=== PATIENT | female | born 1960 | race Caucasian/White ===

== ENCOUNTER 2022-09-21 17:32 | Emergency (ER) | payer OTHER, SELFPAY ==
[2022-09-21] VITALS (10 sets, daily range): BP systolic 118–154; BP diastolic 60–84; PULSE 57–65; RESP 15–21; TEMP 36.2; O2SAT 96–99; BMI 32.1
[2022-09-21 18:34] LABS: Add Manual Diff / Slide Review NO; Basophils Absolute Auto 0 /uL (0-100); Basophils Percent Auto 0.7 % (0-2); Eosinophils Absolute Auto 0 /uL (0-450); Hematocrit 35.3 % (36-46); Hemoglobin 12.2 g/dL (12.0-16.0); Lymphocytes Absolute Auto 1900 /uL (1100-4500); Mean Corpuscular HGB Conc 34.4 % (30-36); Mean Corpuscular Hemoglobin 29.7 PG (26-34); Mean Corpuscular Volume 86.4 fL (80-100); Monocytes Absolute Auto 700 /uL (0-900); Monocytes Percent Auto 9.6 % (3-14); Neutrophils Absolute Auto 4700 /uL (1500-7000); Neutrophils Percent Auto 63.7 % (50-75); Platelet Count 272 X10^3/uL (150-400); Red Blood Cell Count 4.09 X10^6/uL (4.0-5.2); Red Cell Distribution Width 13.2 % (11.6-14.8); White Blood Cell Count 7.4 X10^3/uL (4.5-11.0)
[2022-09-21 18:47] LABS: Amorphous Sediment Urine 2+; Bacteria Urine None Seen; Calcium Oxalate Crystals Urine Many; RBC Urine None Seen (0-5/HPF); Squamous Epithelial Cell Urine 5-10 /HPF (0-5/HPF); WBC Urine None Seen (0-5/HPF)
[2022-09-21 18:47] LABS: Alanine Aminotransferase 18 IU/L (<35); Albumin 4.1 g/dL (3.5-5.0); Albumin Globulin Ratio 1.2 (1.0-2.8); Alkaline Phosphatase 71 U/L (38-126); Aspartate Aminotransferase 25 IU/L (14-36); BUN Creatinine Ratio 19.5 (6-22); Bilirubin Total 0.5 mg/dL (0.2-1.3); Blood Urea Nitrogen 16 mg/dL (7-17); Calcium 9.4 mg/dL (8.4-10.2); Carbon Dioxide 27 mmol/L (22-32); Chloride 107 mmol/L (98-107); Estimated Glomerular Filt Rate > 60 mL/min (>60); Globulin 3.5 g/dL (1.7-4.1); Glucose 100 mg/dL (80-110); HEMOLYSIS < 15 (0-50); Lipase 115 U/L (23-300); Potassium 3.6 mmol/L (3.4-5.1); Sodium 141 mmol/L (137-145); Total Protein 7.6 g/dL (6.3-8.2)
[2022-09-21 18:48] LABS: Culture Indicated Urine Cult Not Indicated
--- NOTE | 2022-09-21 18:57 | PC.NURSE ---
Pt reporting she did get lightheaded and dizzy for a few minutes after the sneeze that caused her pain.
--- NOTE | 2022-09-21 19:13 | DI.CT.S_ITS ---
PROCEDURE: CT ABDOMEN PELVIS W CON INDICATIONS: hx of abdominal surgeries with hernia and now pain TECHNIQUE: After the administration of oral and IV contrast, axial sections were acquired from the lung bases to the pubic symphysis. Coronal and sagittal reformats were performed. For radiation dose reduction, the following was used: automated exposure control, adjustment of mA and/or kV according to patient size. COMPARISON: None. FINDINGS: Image quality: Excellent. Lung bases: Unremarkable. Heart: No significant findings. ABDOMEN: Liver: Normal size. Mild hepatic steatosis. Gallbladder: Surgically removed. Biliary ducts: Unremarkable. Pancreas: Unremarkable. Spleen: Unremarkable. Adrenal Glands: Unremarkable. Kidneys and Ureters: Normal size. Symmetrical enhancement. 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 Small low-density cortical nodules are most likely cysts. Stomach and Bowel: Stomach, small bowel loops, and colon are normal in caliber. Diverticulosis without acute diverticulitis. Peritoneum: No abnormal intraperitoneal fluid. No free air. Ventral Wall: There is a periumbilical ventral hernia containing short segment of small intestine. No findings to suggest small bowel obstruction at the hernia site. Abdominal Nodes: No retroperitoneal or mesenteric adenopathy by size criteria. Vessels: Aorta and inferior vena cava are normal in size. PELVIS: Pelvic Organs: Unremarkable. Bladder: Unremarkable. Pelvic Nodes: No enlarged lymph nodes. Miscellaneous: No inguinal hernias are seen. Bones: Unremarkable. IMPRESSION: 1. Moderate sized periumbilical ventral hernia containing a short segment of small intestine. No small bowel obstruction. 2. Diverticulosis without diverticulitis. 3. Hepatic steatosis. Dictated by: Rohan Ladd M.D. on 09/21/2022 at 20:54 Approved by: Rohan Ladd M.D. on 09/21/2022 at 20:59
--- NOTE | 2022-09-21 19:13 | ED.GENADULT ---
HPI - General Adult General Chief complaint: Abdominal Pain Stated complaint: Abd pain, burning feeling, hx of 18lb tumor Time Seen by Provider: 09/21/22 18:17 Source: patient Mode of arrival: Ambulatory Limitations: no limitations History of Present Illness HPI narrative: Patient is a 62-year-old female. Has had prior abdominal surgeries. She has thought in the past that she had a potential small umbilical hernia. A couple days ago she states she had a sneeze/cough. She would immediate pain afterwards. Since that time she is had abdominal discomfort and burning. States that when she stands up she can feel a bulge in the middle of her abdomen that then she can push back in and it does resolve when she lays down as well. No change in bowel habits. No vomiting. No urinary symptoms. No fevers. Has not tried anything for the symptoms prior to arrival. Related Data Allergies Allergy/AdvReac Type Severity Reaction Status Date / Time morphine Allergy Verified 09/21/22 17:44 Penicillins Allergy Verified 09/21/22 17:44 Review of Systems Constitutional Constitutional: Reports system reviewed and no additional complaints, except as documented Gastrointestinal Gastrointestinal: Reports system reviewed and no additional complaints, except as documented Genitourinary Genitourinary: Reports system reviewed and no additional complaints, except as documented Integumentary/Breasts Skin/Breast: Reports system reviewed and no additional complaints, except as documented Patient History Social History Smoking Status: Never smoker Smoking Status: Never smoker alcohol intake frequency: holidays/special occasions only Substance Use Type: marijuana Exam Initial Vital Signs Initial Vital Signs: Vital Signs Temperature 97.2 F L 09/21/22 17:44 Pulse Rate 65 09/21/22 17:44 Respiratory Rate 16 09/21/22 17:44 Blood Pressure 154/67 H 09/21/22 17:44 Pulse Oximetry 99 09/21/22 17:44 Oxygen Delivery Method Room Air 09/21/22 17:44 Const General: cooperative, comfortable and No ill appearing [facility] Head: normal to inspection and normocephalic GI Inspection: non-distended Palpation: soft, No firm, No hernia, No mass and No tender Skin Other: Well-healed surgical scars and abdomen consistent with her stated surgical history Neuro General: patient alert, patient awake and moves all extremities Extrem General: normal to inspection Course Orders Ordered: Discontinued Medications Hydrocodone Bitart/Acetaminophen (Hydrocodone/Acet 5/325 Prepack) 1 bottle MISC SEEINSTR ONE Stop: 09/21/22 21:37 Last Admin: 09/21/22 22:02 Dose: 1 bottle Documented By: ISAIAS Hydrocodone Bitart/Acetaminophen (Hydrocodone/Acet 5/325 Tablet) 1 tab PO NOW ONE Stop: 09/21/22 21:37 Last Admin: 09/21/22 22:01 Dose: 1 tab Documented By: ISAIAS Ondansetron HCl (Ondansetron 4 Mg Odt) 4 mg PO NOW PRN PRN Reason: Nausea And Vomiting Ondansetron HCl (Ondansetron 4 Mg/2 Ml Inj) 4 mg IV NOW PRN PRN Reason: Nausea And Vomiting Vital Signs Vital signs: Vital Signs - 8 hr 09/21/22 22:03 09/21/22 21:30 Pulse Rate 62 Blood Pressure 137/63 Pulse Oximetry 98 Oxygen Delivery Method Room Air Medical Decision Making Lab Data Lab results reviewed: Yes I reviewed the patient's lab results. 09/21/22 18:27 09/21/22 18:27 Labs: Lab Results 09/21/22 09/21/22 09/21/22 Range/Units 15:21 18:27 18:27 WBC 7.4 (4.5-11.0) X10^3/uL RBC 4.09 (4.0-5.2) X10^6/uL Hgb 12.2 (12.0-16.0) g/dL Hct 35.3 L (36-46) % MCV 86.4 (80-100) fL MCH 29.7 (26-34) PG MCHC 34.4 (30-36) % RDW 13.2 (11.6-14.8) % Plt Count 272 (150-400) X10^3/uL Neut % (Auto) 63.7 (50-75) % Lymph % (Auto) 26.0 (25-40) % [place] % (Auto) 9.6 (3-14) % Eos % (Auto) 0.0 L (2-4) % Baso % (Auto) 0.7 (0-2) % Neut # (Auto) 4700 (2838-7505) /uL Lymph # (Auto) 1900 (7977-7913) /uL [place] # (Auto) 700 (0-900) /uL Eos # (Auto) 0 (0-450) /uL Baso # (Auto) 0 (0-100) /uL Sodium 141 (137-145) mmol/L Potassium 3.6 (3.4-5.1) mmol/L Chloride 107 (98-107) mmol/L Carbon Dioxide 27 (22-32) mmol/L BUN 16 (7-17) mg/dL Creatinine 0.82 (0.52-1.04) mg/dL Estimated GFR > 60 (>60) mL/min BUN/Creatinine Ratio 19.5 (6-22) Glucose 100 (80-110) mg/dL Calcium 9.4 (8.4-10.2) mg/dL Total Bilirubin 0.5 (0.2-1.3) mg/dL AST 25 (14-36) IU/L ALT 18 (<35) IU/L Alkaline Phosphatase 71 (38-126) U/L Total Protein 7.6 (6.3-8.2) g/dL Albumin 4.1 (3.5-5.0) g/dL Globulin 3.5 (1.7-4.1) g/dL Albumin/Globulin Ratio 1.2 (1.0-2.8) Lipase 115 (23-300) U/L Urine RBC None seen (0-5/HPF) Urine WBC None seen (0-5/HPF) Ur Squamous Epith Cells 5-10 /hpf H (0-5/HPF) Calcium Oxalate Crystal Many H Amorphous Sediment 2+ Urine Bacteria None seen (None) Ur Culture Indicated? Cult not indicated Point of Care Testing Test Results Negative Urine Dip Bedside Urine Glucose Negative Bedside Urine Bilirubin - Negative Bedside Urine Ketone - Negative Urine Specific [place] 1.030 Bedside Urine Occult Blood + Bedside Urine pH 5.5 Bedside Urine Protein - Negative Bedside Urine Urobilinogen - Negative Bedside Urine Nitrite - Negative Bedside Urine Leukocytes - Negative Esterase Point of care testing: Point of Care Testing Test Results Negative Urine Dip Bedside Urine Glucose Negative Bedside Urine Bilirubin - Negative Bedside Urine Ketone - Negative Urine Specific [place] 1.030 Bedside Urine Occult Blood + Bedside Urine pH 5.5 Bedside Urine Protein - Negative Bedside Urine Urobilinogen - Negative Bedside Urine Nitrite - Negative Bedside Urine Leukocytes - Negative Esterase Imaging Data CT scan - abdomen/pelvis: Radiologist's Impression: PROCEDURE:? CT ABDOMEN PELVIS W CON ? INDICATIONS:? hx of abdominal surgeries with hernia and now pain ? TECHNIQUE:? After the administration of oral and IV contrast, axial sections were acquired from the lung bases to the pubic symphysis.? Coronal and sagittal reformats were performed.? For radiation dose reduction, the following was used:? automated exposure control, adjustment of mA and/or kV according to patient size. ? COMPARISON:? None. ? FINDINGS:? Image quality:? Excellent.? ? Lung bases:? Unremarkable.? ? Heart:? No significant findings. ? ? ABDOMEN: Liver:? Normal size.? Mild hepatic steatosis.? ? Gallbladder:? Surgically removed.? ? Biliary ducts:? Unremarkable.? ? Pancreas:? Unremarkable.? ? Spleen:? Unremarkable.? ? Adrenal Glands:? Unremarkable.? ? Kidneys and Ureters:? Normal size.? Symmetrical enhancement.? Suspect a 9 mm angiomyolipoma in the inferior pole of the right kidney.? Small low-density cortical nodules are most likely cysts. ? ? Stomach and Bowel:? Stomach, small bowel loops, and colon are normal in caliber.? Diverticulosis without acute diverticulitis. Peritoneum:? No abnormal intraperitoneal fluid.? No free air.? ? Ventral Wall: ? There is a periumbilical ventral hernia containing short segment of small intestine.? No findings to suggest small bowel obstruction at the hernia site.? Abdominal Nodes:? No retroperitoneal or mesenteric adenopathy by size criteria.? Vessels:? Aorta and inferior vena cava are normal in size.? ? PELVIS: Pelvic Organs:? Unremarkable.? ? Bladder:? Unremarkable.? ? Pelvic Nodes: No enlarged lymph nodes.? Miscellaneous: No inguinal hernias are seen. ? ? ? Bones:? Unremarkable.? IMPRESSION:? ? 1. Moderate sized periumbilical ventral hernia containing a short segment of small intestine.? No small bowel obstruction. 2. Diverticulosis without diverticulitis. 3.? Hepatic steatosis.? ECG Data Attestation: I personally reviewed and interpreted this ECG as follows: Interpretation: Sinus bradycardia Ventricular rate of 52 Normal axis Normal QRS Normal QTC No ST T wave changes MDM Narrative Medical decision making narrative: Patient has a relatively benign abdominal exam today. I do not specifically feel an umbilical nor ventral hernia however she is at risk for this. A CT scan does confirm that she has hernias but there is no indication of strangulation/incarceration nor bowel obstruction. I suspect that when she had that sneeze/cough a couple days ago she potentially tore her abdominal muscles and potentially he even made a small hernia worse. I did discuss this with her. Told her that she needed to follow-up with general surgery to discuss surgical repair. No indication for admission to the hospital nor emergent surgical consultation. She was given return precautions. She expressed understanding and agreement. Discharge Plan Departure Patient Disposition: Home Clinical Impression: Ventral hernia, Umbilical hernia Instructions: DI for Ventral Hernia Activity Restrictions/Additional Instructions: I recommend that tomorrow you contact the general surgery department at the number provided below to discuss a follow-up. Take the pain medication as needed. Return to the emergency department for any new or worsening symptoms. Referrals: Jameson Carson MD [Physician] - Stand Alone Forms: Patient Portal/API
[2022-09-21] MEDS: HYDROCODONE/ACET 5/325 TABLET 1 TAB PO (22:01)
[2022-09-21] MEDS: HYDROCODONE/ACET 5/325 PREPACK 1 BOTTLE MISC (22:02)
== END 2022-09-21 22:08 | disposition home or self-care (01) ==
PROVIDERS: Emergency Provider Emergency Medicine
DX: K43.9 Ventral hernia without obstruction or gangrene (principal); K42.9 Umbilical hernia without obstruction or gangrene; R10.9 Unspecified abdominal pain
CPT/HCPCS: 36415; 74177; 80053; 81003; 81015; 81025; 83690; 85025; 93005; 99284; Q9967

== ENCOUNTER 2022-10-14 13:28 | Observation (INO) | payer OTHER, MEDICAID, SELFPAY ==
[2022-10-06 07:58] VITALS: BMI 33.1
[2022-10-13] VITALS (10 sets, daily range): BP systolic 115–167; BP diastolic 51–85; PULSE 56–94; RESP 10–18; TEMP 35.9–36.7; O2SAT 92–98; BMI 33.6
[2022-10-13] MEDS: LACTATED RINGERS 1,000 ML 42 ML IV ×3 (14:11→18:33)
[2022-10-13] MEDS: ONDANSETRON 4 MG/2 ML INJ IV ×3 (14:26→21:15)
[2022-10-13 14:40] LABS: COVID19 -Nasal RAPID Negative (Negative)
--- NOTE | 2022-10-13 15:45 | PM.PREOP ---
Pre-operative Note Interval Note History & Physical reviewed/Exam performed by Physician: Yes Changes to H&P: No
[2022-10-13] MEDS: CEFAZOLIN 2 GM/100 ML PREMIX 100 ML IV (16:25)
--- NOTE | 2022-10-13 17:04 | SUR.OPER ---
Supine on padded OR bed with pink anti-slide foam pad under torso, head on pillow, arms padded and tucked at sides, legs uncrossed, safety belt at thigh, tape over blanket over lower legs . Pt positioned per direction and supervision of Dr Reza.
[2022-10-13] MEDS: BUPIVACAINE 0.25% W/ EPI 30 ML VIAL INJ (17:15)
[2022-10-13] MEDS: CEFAZOLIN VIAL 2 GM in SODIUM CHLORIDE 0.9% 100 ML IV (20:09)
[2022-10-13] MEDS: HYDROMORPHONE 2 MG INJ IV ×3 (21:15→21:42)
[2022-10-13] MEDS: fentaNYL 100 MCG/2 ML INJ ×2 (21:15→21:28)
--- NOTE | 2022-10-13 21:17 | PM.OP.1 ---
Operative Date/Time/Diagnoses Date of procedure: 10/13/22 Time of procedure: 21:17 Pre-op diagnosis: Incisional hernia Post-op diagnosis: same Procedure & Clinicians Procedure: Incisional hernia repair -lap converted to open Same procedure as scheduled: Yes Surgeon: Chantal Reza Anesthesia Type: General Operative Notes Findings: 8 cm ventral hernia with weak and diastasis of recti around it Specimen(s): none sent Prosthetic devices, grafts, tissues, transplants, or devices: 6 x 6 in Bard large pore soft mesh Applied: catheter (Urinary) Estimated Blood Loss (mL): 100 Procedure in detail: Patient was taken to the operating room and placed supine on the operating room table. Bilateral SCDs were in place and preoperative antibiotics were administered. A time-out was performed. General endotracheal anesthesia was induced. The abdomen was prepped and draped in the usual sterile fashion and both arms were tucked by the side. A little bit of hyperextension of the abdomen was provided with positioning. To begin an incision was made in the left upper quadrant with an 11 blade scalpel of 10 mm size this incision was carried down through the subcutaneous tissue and through the anterior abdominal rectus fascia. The rectal muscle was spread and an attempt to enter the retrorectal space was made. During this process a a rent in the posterior rectus sheath and peritoneum was made. This create a difficulty in dissecting the retrorectal space and developing it because eventually the air leak into the intra-abdominal space was closing off the retrorectal space. After several attempts to close the peritoneum and reinflate the correct cavity I reattempted to enter the retrorectal space from an intraperitoneal location. The Brennan trocar was left in the same position but the previous rent was opened and the trocar was allowed into the abdomen. After placing the 5 mm 30 degree scope into the abdomen I inspected it for entry injury or other abnormalities. I could see the hernia defect of 8 cm in size below the umbilicus, there were minimal adhesions and no bowel incarcerated in the hernia sac. I made an incision in the posterior rectus sheath and peritoneum above the umbilicus and using electrocautery with the laparoscopic Metzenbaum scissors, I was able to open this space and dissected it somewhat. I did insert additional trocars of 5 mm in size under direct visualization in the usual fashion. However, due to the location of the ports and technical difficulties I was not easily able to carry this space far enough towards the pubis to create a large enough pocket around the hernia space to accommodate a mesh into the retrorectus space that would have sufficient overlap for adequate repair. Due to the time that had elapsed and in an effort to decrease her anesthetic time I elected at that point to convert to an open procedure. I made an incision below the umbilicus through her previous incision scar. Because I had done a laparoscopic examination and dissection, I knew that the bowel was not incarcerated within the defect and I was able to enter the retrorectal space in an open fashion relatively easily. There was some bleeding from the rectus muscles. After opening the defect and excising the peritoneal sac I then reapproximated the posterior sheath and tacked the mesh in 4 corners over the posterior closure. I used a interrupted 0 Vicryl sutures for the tacking sutures and 0 Prolene suture in a running fashion to close the posterior sheath. I ran 2 separate sutures from the top and bottom of the posterior rectus defect and tied them in the middle. Before completing the closure I placed the tacks through the mesh and posterior sheath with direct visualization. Next I used a looped 0 PDS to run the anterior rectus sheath closed. The mesh was underneath the rectal muscles and the rectal muscles were closed behind the rectus sheath. After this repair there was a large amount of subcutaneous tissue that created a large enough pocket that I decided to place a 10 PACO flat drain into the subcutaneous space. I then closed that subcutaneous space with a running 3-0 Vicryl. I used a 3-0 Vicryl to tack the umbilicus down as well. I closed the skin with skin dominik. In addition I closed the fascia of the initial 10 mm left upper quadrant incision with an 0 Vicryl suture in a [id number]. The additional 5 mm trocar sites and the 10 mm left upper quadrant site were closed with dominik as well. The drain was secured with a drain stitch of 2-0 silk. The wounds were dressed with 4x4s and tape. An abdominal binder was placed. Patient went in good condition to the postoperative care unit. Complications: other (Lap converted to open) Post-operative Disposition: PACU Plan for aftercare: She will be admitted overnight for pain control.
[2022-10-13] MEDS: ACETAMINOPHEN IV 1,000 MG/100 ML VIAL 400 MG IV (21:24)
--- NOTE | 2022-10-13 21:49 | SUR.PHASEI ---
Patient to recovery room at 2115 in severe abdominal pain; crying, inconsolable; vss; deep breathing encouraged and comfort measures given by OR nurse and PACU nurse. Medicated for pain and nausea.
--- NOTE | 2022-10-13 21:50 | SUR.PHASEI ---
Patient resting more comfortably at this time and speaking in full sentences, not crying as much and appears to be more comfortable. VSS.
[2022-10-13] MEDS: OXYCODONE IR 5 MG TABLET PO (22:48)
[2022-10-13] MEDS: SODIUM CHLORIDE 0.9% 1,000 ML 75 ML IV (22:49)
[2022-10-14 00:15] VITALS: BP 117/52; PULSE 74; RESP 16; TEMP 36.7; O2SAT 92
[2022-10-14] MEDS: HYDROMORPHONE 1 MG INJ IV ×4 (01:34→08:56)
[2022-10-14] MEDS: ONDANSETRON 4 MG/2 ML INJ IV ×4 (01:34→20:20)
[2022-10-14 01:35] VITALS: BP 134/65; PULSE 77; RESP 17; TEMP 36.1; O2SAT 94
[2022-10-14] MEDS: OXYCODONE IR 10 MG TABLET PO ×2 (02:17→05:51)
[2022-10-14] MEDS: ACETAMINOPHEN 325 MG TABLET 975 MG PO ×3 (04:28→18:36)
[2022-10-14 08:00] VITALS: BP 136/61; PULSE 76; RESP 17; TEMP 36.2; O2SAT 97
[2022-10-14] MEDS: ENOXAPARIN 40 MG/0.4 ML SYRINGE SUBCUT (08:56)
[2022-10-14] MEDS: DOCUSATE 100 MG CAPSULE PO ×2 (08:56→20:20)
--- NOTE | 2022-10-14 09:33 | P.PN_ITS ---
Subjective Subjective Date Patient Seen: 10/14/22 Interval history: Ms. Golden today is having a lot of pain. She has not been out of bed and the Aburto remains in place. Dilaudid is helping at the 1 mg dose but sometimes is wearing off too quickly. She also is complaining of feeling nauseated Exam Vital Signs (past 8 hours): - 10/14/22 01:35 10/14/22 08:00 Temperature 97.0 F L 97.1 F L Pulse Rate 77 76 Respiratory Rate 17 17 Blood Pressure 134/65 136/61 Pulse Oximetry 94 97 Oxygen Flow Rate 2 1 Oxygen Delivery Method Nasal Cannula Oxygen Flow Rate 1 Narrative Exam Narrative: She is awake alert oriented and supine in bed. She is pleasant and appropriate and in no acute distress Her breathing is nonlabored Her abdomen is soft and appropriately tender. The surgical wounds are intact with dominik in place. There is sanguinous drainage from the PACO drain in the left abdomen. There is a scant amount of sanguinous material around the larger midline wound. The dressing was removed and replaced with more 4x4s and tape Aburto is in place and the urine is light yellow color. Objective Labs 10/14/22 14:40 Labs: Laboratory Results - last 24 hr 10/13/22 13:55 SARS-CoV-2 (PCR) Negative PFSH Surgical History (Updated 10/06/22 @ 08:01 by Tosha Carmona RN) Hx of abdominal surgery Hx of appendectomy Hx of section Hx of hysterectomy Family History (Updated 09/22/22 @ 16:03 by Marylou Carias RN) Father Diabetes mellitus Hypertension Mother Heart disease Social History household members: none Smoking Status: Never smoker alcohol intake: current Assessment & Plan Assessment and plan (1) Incisional hernia of anterior abdominal wall without obstruction or gangrene: Status: Acute (2) Postoperative abdominal pain: Status: Acute (3) Postoperative nausea: Status: Acute (4) Activity moderately limited: Status: Acute Assessment & Plan narrative: I have increased her Zofran dose to 4 mg Q 4 hours and change the diet to clear liquids. I have discussed with the nurses that patient may have crackers or other food and the RN may advance diet as tolerated. For the postoperative pain I have contacted the pharmacy and would like to give multimodal pain plan with Tylenol and Toradol around the clock and oral ox ycodone as needed. Additionally I think we should continue to use IV Dilaudid as needed for breakthrough pain until the pain is much better controlled. Again this was discussed with bedside RN, as well as pharmacy. In addition I have contacted the anesthesia Department to see if there is any local anesthetic or tap block that could be used to supplement for pain control. I am going to continue the Aburto catheter for now because the patient is not very mobile. Because of the same reason I am ordering physical therapy. And starting DVT prophylaxis with 40 mg of Lovenox subcu daily and SCDs.
[2022-10-14] MEDS: KETOROLAC 30 MG/ML VIAL IV ×3 (10:41→23:59)
[2022-10-14] MEDS: PANTOPRAZOLE 40 MG VIAL IV (10:42)
--- NOTE | 2022-10-14 10:54 | CM.DANOTE ---
Initial DCP Assessment Note Pt is a 62 yo female, resident of [place] , now POD#1 from Incisional hernia repair -lap converted to open PCP: Not established Payer: [employer] Reviewed chart, met w/patient to introduce self and role. Patient relays- she has been experiencing a lot of pain this morning. Patient remains in good spirits, discussed discharge plan as follows: Patient plans to discharge home w/daughter Carito and neighbor/landlord to assist as needed. 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 CM team will plan to follow closely in case any DC needs or concerns arise SANGEETA Love Discharge Planning/Care Management CM Discharge Assessment Start: 10/14/22 10:50 Freq: Status: Active Protocol: Document 10/14/22 10:51 JESSIKA (Rec: 10/14/22 10:54 JESSIKA [id number]) Discharge Planning Assessment Assigned Media Manager SANGEETA Cardona DPOA/Assigned Designee Name ruiz Chan Contact Information [phone] Advance Directives? No History Provided By Patient,Medical Record Prior Living Arrangements House Household Members none Type of transporation used prior to Drives own vehicle admit Independent with ADL's Yes Is patient alert and oriented? Yes Barriers to Discharge No Comment Home w/daughter and neighbor/ landlord to assist as needed. 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
[2022-10-14] MEDS: SODIUM CHLORIDE 0.9% 1,000 ML 75 ML IV (11:07)
[2022-10-14 12:00] VITALS: BP 116/48; PULSE 65; RESP 17; TEMP 36.3; O2SAT 96
[2022-10-14 15:07] LABS: Estimated Glomerular Filt Rate > 60 mL/min (>60)
[2022-10-14 16:00] VITALS: BP 150/72; PULSE 68; RESP 17; TEMP 36.2; O2SAT 95
[2022-10-14] MEDS: OXYCODONE IR 5 MG TABLET 20 MG PO ×3 (17:20→23:59)
[2022-10-14 19:50] VITALS: BP 125/58; PULSE 64; RESP 18; TEMP 36.5; O2SAT 94
[2022-10-15 00:01] VITALS: BP 132/63; PULSE 54; RESP 21; TEMP 36.4; O2SAT 97
[2022-10-15] MEDS: SODIUM CHLORIDE 0.9% 1,000 ML 75 ML IV ×2 (00:10→13:00)
[2022-10-15 03:11] VITALS: BP 129/62; PULSE 62; RESP 18; TEMP 36.3; O2SAT 96
[2022-10-15] MEDS: OXYCODONE IR 5 MG TABLET 20 MG PO ×6 (05:36→22:07)
[2022-10-15] MEDS: ONDANSETRON 4 MG/2 ML INJ IV ×4 (05:37→21:44)
[2022-10-15] MEDS: ACETAMINOPHEN 325 MG TABLET 975 MG PO ×4 (05:37→23:39)
[2022-10-15] MEDS: KETOROLAC 30 MG/ML VIAL IV ×4 (05:37→23:39)
[2022-10-15 07:00] VITALS: BP 142/51; PULSE 53; RESP 17; TEMP 36.1; O2SAT 93
[2022-10-15] MEDS: ENOXAPARIN 40 MG/0.4 ML SYRINGE SUBCUT (08:48)
[2022-10-15] MEDS: PANTOPRAZOLE 40 MG VIAL IV (08:49)
[2022-10-15] MEDS: DOCUSATE 100 MG CAPSULE PO ×2 (08:49→21:44)
--- NOTE | 2022-10-15 09:05 | PC.NURSE ---
Addendum entered by Melissa Domínguez R.N. 10/15/22 19:18: Patients corbett catheter out, patient had good output. Resting now and watching tv. Addendum entered by Melissa Domínguez R.N. 10/15/22 15:41: Patient offered 15mg of oxycodone to see if this would be adequate for pain control, she states that the 20mg of oxycodone has been effiecient for pain control. She is up to the commode now trying to have a bowel movement. Original Note: Assess- Patient is alert and oriented x4, she states that the pain to her mid abdomen is 6/10. Medicated with 20mg of oxycodone and this has helped patient to be comfortable. She has a dressing to her midline that is cdi with abdominal binder in place. Patient has been out of bed yesterday and will be getting up to use the commode after a bit. She tolerated some breakfast and took her medication without any difficulty.
[2022-10-15 11:00] VITALS: BP 150/59; PULSE 48; RESP 18; TEMP 36.3; O2SAT 94
[2022-10-15 15:00] VITALS: BP 140/66; PULSE 58; RESP 18; TEMP 36.2; O2SAT 95
--- NOTE | 2022-10-15 17:31 | PM.PN.1 ---
Subjective Subjective Date Patient Seen: 10/15/22 Time Patient Seen: 17:31 Interval history: Feeling better today. Tolerating a diet and passing some gas. Still has a Aburto in. Exam Vital Signs (past 8 hours): - 10/15/22 11:00 10/15/22 15:00 Temperature 97.4 F L 97.1 F L Pulse Rate 48 L 58 L Respiratory Rate 18 18 Blood Pressure 150/59 H 140/66 Pulse Oximetry 94 95 Oxygen Flow Rate 0 0 Oxygen Delivery Method Room Air Oxygen Flow Rate 0 Narrative Exam Narrative: Abdomen soft Drain is serosanguineous Objective Labs 10/14/22 14:40 PFSH Surgical History (Updated 10/06/22 @ 08:01 by Tosha Carmona RN) Hx of abdominal surgery Hx of appendectomy Hx of section Hx of hysterectomy Family History (Updated 09/22/22 @ 16:03 by Marylou Carias RN) Father Diabetes mellitus Hypertension Mother Heart disease Social History household members: none Smoking Status: Never smoker alcohol intake: current Assessment & Plan Assessment and plan (1) Incisional hernia of anterior abdominal wall without obstruction or gangrene: Status: Acute Plan Discontinue Aburto catheter Likely home tomorrow
[2022-10-15 20:09] VITALS: BP 158/59; PULSE 63; RESP 18; TEMP 37; O2SAT 97
[2022-10-16 00:45] VITALS: BP 173/68; PULSE 63; RESP 19; TEMP 36.8; O2SAT 97
[2022-10-16] MEDS: OXYCODONE IR 5 MG TABLET 20 MG PO ×3 (02:03→12:40)
[2022-10-16] MEDS: ONDANSETRON 4 MG/2 ML INJ IV ×2 (05:26→11:46)
[2022-10-16] MEDS: KETOROLAC 30 MG/ML VIAL IV ×2 (05:26→11:46)
[2022-10-16] MEDS: OXYCODONE IR 10 MG TABLET 15 MG PO (05:27)
[2022-10-16] MEDS: PANTOPRAZOLE DR 40 MG TABLET PO (05:29)
[2022-10-16 05:35] VITALS: BP 123/59; PULSE 61; RESP 18; TEMP 36.7; O2SAT 93
[2022-10-16] MEDS: ACETAMINOPHEN 325 MG TABLET 975 MG PO ×2 (05:41→12:41)
[2022-10-16 07:45] VITALS: BP 137/62; PULSE 62; RESP 16; TEMP 36.5; O2SAT 99
[2022-10-16] MEDS: ENOXAPARIN 40 MG/0.4 ML SYRINGE SUBCUT (09:59)
[2022-10-16] MEDS: DOCUSATE 100 MG CAPSULE PO (10:00)
--- NOTE | 2022-10-16 10:47 | PC.NURSE ---
Assess- Patient is alert and oriented x4, she is getting 20mg of po oxycodone for discomfort every 3 to 4 hours and this has been helpful for her. Dressing to is cdi with abdominal binder in place. She is wearing an abdominal binder and this is in place. in room and patient will be discharged today.
[2022-10-16 11:57] VITALS: BP 162/63; PULSE 53; RESP 16; TEMP 36.6; O2SAT 95
--- NOTE | 2022-10-16 13:40 | P.DS_ITS ---
History of Present Illness History of Present Illness Chief complaint: [facility] [place] Narrative: Ms. Golden presented to my office with a symptomatic abdominal hernia. She under his the risks benefits and alternatives and elected for repair. She underwent a laparoscopic converted to open surgical repair on 10/13. Postoperatively she had a lot of pain and her pain was managed as an inpatient. On hospital day 2 some adjustments were made and her pain control was improved. She was able to tolerate removal of her Aburto catheter on this day. On hospital day 3 her diet was advanced and her pain was controlled on oral pain medications. She was this therefore discharged home in good condition. There is a subcutaneous surgical drain that was placed intraoperatively. She is been instructed to return to the clinic when the output from this drain is less than 30 cc per day. She will need dominik rem osei in 7-10 days after surgery Discharge Providers Provider Date of admission: 10/14/22 13:28 Discharge Date: 10/16/22 Primary care physician: Doctor Azra MD Discharge provider: Chantal Reza MD Exam Vital Signs (past 8 hours): - 10/16/22 07:45 Temperature 97.7 F Pulse Rate 62 Respiratory Rate 16 Blood Pressure 137/62 Pulse Oximetry 99 Oxygen Flow Rate 0 Oxygen Delivery Method Room Air Oxygen Flow Rate 0 Const General: cooperative, healthy appearing, comfortable and well developed Orientation: alert, awake and oriented x3 Eyes General: appearance normal, both eyes and all related structures Resp Effort & Inspection: normal respiratory effort and able to speak in complete sentences GI Other: Surgical wounds are clean dry and intact dominik are in place. The abdomen is appropriately tender around the wound. There is a PACO drain left lower quadrant which is putting out serosanguineous discharge. Objective Labs 10/14/22 14:40 [facility] Surgical History (Updated 10/06/22 @ 08:01 by Tosha Carmona RN) Hx of abdominal surgery Hx of appendectomy Hx of section Hx of hysterectomy Family History (Updated 09/22/22 @ 16:03 by Marylou Carias RN) Father Diabetes mellitus Hypertension Mother Heart disease Social History household members: none Smoking Status: Never smoker alcohol intake: current Discharge Assessment & Plan Assessment and Plan Assessment: Postoperative day 3 status post open ventral incisional hernia repair. Doing well. Tolerating diet and pain controlled on oral pain medications. Able to be up out of bed and ambulate independently. Plan of Treatment: I have discharged her with the appropriate pain medication and Colace to prevent constipation. She also has Zofran as needed because the pain medication has on occasion made her nauseous. She will follow-up in my clinic for drain removal and staple removal. She is been provided with the phone number to call this weekend if there are any questions or concerns and reach the surgeon on-call. Discharge Plan Discharge Plan Patient Disposition: Home Provider Discharge Comment: Please take Tylenol and ibuprofen around the clock. You may titrate the oxycodone portion as needed. Once you no longer need oxycodone at all then you may stop taking either Tylenol or ibuprofen. Please take Colace to prevent constipation when you are taking oxycodone. Please call the office or take an [id number] remedy as needed if you develop constipation even with this prevention. Discharge orders & Medications Prescriptions: New acetaminophen 325 mg Tablet 1,000 mg PO Q6H Qty: 30 0RF Rx Instructions: Take 1000 mg 4 times a day around the clock until you no longer need oxycodone. Extra-strength Tylenol tabs of 500 mg each are available [id number] docusate sodium 100 mg Capsule 100 mg PO BID Qty: 30 0RF oxycodone 5 mg Tablet 20 mg PO Q4H PRN (Reason: Pain, Severe (7-10)) Qty: 90 0RF Rx Instructions: You may take 3-4 tabs as needed every 4 hours for pain. Please take Tylenol and ibuprofen around the clock as long as you are taking this medicine. Also please take Colace twice daily to prevent constipation ibuprofen 800 mg tablet 800 mg PO TID Qty: 30 0RF Rx Instructions: Take 3 times a day along with scheduled Tylenol. You may titrate the oxycodone portion as needed. Once you no longer need oxycodone and are only taking ibuprofen and Tylenol then you may stop 1 or the other ondansetron 8 mg tablet,disintegrating 8 mg PO Q8H PRN (Reason: nausea and vomiting) Qty: 30 0RF Discontinued docusate sodium [Colace] 100 mg capsule 100 mg PO BID Qty: 30 0RF Rx Instructions: Take while taking Percocet for pain to prevent constipation. oxycodone-acetaminophen [Percocet] 5-325 mg tablet 2 tab PO Q6H PRN (Reason: pain) Qty: 30 0RF Rx Instructions: May take one or two tabs depending on pain level every 6 hours as needed. Follow up/Referrals: Chantal Reza MD [Physician] - (Please call the office 08/02 with any questions or concerns. After hours or on the weekends there is a surgeon on- call who is happy to answer any questions. Please stay on the line and send a message through the answering service. I would like to see you in follow-up when drain output is less than 30 cc in 24 hours. Surgical dominik need to be removed in 7-10 days.) Doctor Oquendo MD [Primary Care Provider] - Diet/Activity/Treatments Diet: Diet as Tolerated and Regular Other treatments: Call the office of [facility] when your drain output is less than 30 cc in 24 hours. Please call the office to make a follow-up appointment for staple removal in 7-10 days. Visit Report/Discharge Packet Instructions: DI for Hernia Repair, DI for Prescription Opioid Use, Oxycodone, [facility]: Wound Care Stand Alone Forms: Patient Portal/API, Stroke Signs & Symptoms Discharge Data Primary Care Provider: Doctor Azra Attending Provider: Chantal Reza Admit Date/Time: 10/14/22 13:28
--- NOTE | 2022-10-20 19:12 | PC.NURSE ---
See pyxis documentation- oxycodone 20mg removed at 1228 on 10/14/22 by Nani Becker RN scanned but not saved- was given.
--- NOTE | 2022-11-03 14:56 | PC.NURSE ---
Gave pt 20 mg of oxycodone, but forgot to save in SEP and was timed out on 10/14/22 at 1228.
== END 2022-10-16 14:00 | disposition home or self-care (01) ==
LOC: OR 13:37 → AC 13:37
PROVIDERS: Admitting Provider Surgery; Referring Provider Surgery; Visit Provider Surgery
PROC: (CPT 49593; principal; 2022-10-13 15:00)
DX: K43.2 Incisional hernia without obstruction or gangrene (principal); M62.08 Separation of muscle (nontraumatic), other site; G89.18 Other acute postprocedural pain; R11.0 Nausea; Z20.822 Contact with and (suspected) exposure to COVID-19
CPT/HCPCS: 49593; 36415; 82565; 87635; C9803; G0378; C9113; J0131; J0330; J0690; J1100; J1170; J1650; J1885; J2405; J2704; J3010

== ENCOUNTER → 2022-10-27 11:54 | Outpatient (CLI) | payer OTHER, MEDICAID, SELFPAY ==
[2022-10-13 22:21] VITALS: BMI 33.6
== END ==
PROVIDERS: Visit Provider Surgery
DX: K43.2 Incisional hernia without obstruction or gangrene (principal); G89.18 Other acute postprocedural pain; R10.9 Unspecified abdominal pain; R11.0 Nausea; Z87.19 Personal history of other diseases of the digestive system; Z98.890 Other specified postprocedural states
CPT/HCPCS: 87070; 87205; 99213

== ENCOUNTER → 2022-11-24 13:47 | Outpatient (CLI) | payer OTHER, MEDICAID, SELFPAY ==
[2022-10-13 22:21] VITALS: BMI 33.6
--- NOTE | 2022-11-24 13:48 | DI.CT.S_ITS ---
PROCEDURE: CT ABDOMEN PELVIS W CON INDICATIONS: severe abdominal pain post op hernia 1 month ago TECHNIQUE: After the administration of intravenous contrast, axial sections acquired from the lung bases to the pubic symphysis. Coronal and sagittal reformats were performed. For radiation dose reduction, the following was used: automated exposure control, adjustment of mA and/or kV according to patient size. COMPARISON: [facility], CT, CT ABDOMEN PELVIS W CON, 09/21/2022, 19:19. FINDINGS: Image quality: Excellent. Lung bases: Unremarkable. Heart: No significant findings. ABDOMEN: Liver: Unremarkable. Gallbladder: Surgically absent Biliary ducts: Unremarkable. Pancreas: Unremarkable. Spleen: Unremarkable. Adrenal Glands: Unremarkable. Kidneys and Ureters: Unremarkable. Stomach and Bowel: Stomach, small bowel loops, and colon are unremarkable. Appendix is not seen. No evidence of appendicitis. Diverticulosis of the sigmoid colon is present. Peritoneum: No abnormal intraperitoneal fluid. No free air. Ventral Wall: Fat stranding within the anterior subcutaneous fat, compatible with postsurgical sequelae. Previously seen bowel containing umbilical hernia is no longer present. However, there is a new fat containing supraumbilical anterior abdominal wall fat containing hernia measuring 45 mm transverse, which demonstrates mild surrounding fat stranding. Abdominal Nodes: No retroperitoneal or mesenteric adenopathy by size criteria. Vessels: Aorta and inferior vena cava are normal in size. PELVIS: Pelvic Organs: Unremarkable. Bladder: Unremarkable. Pelvic Nodes: No enlarged lymph nodes. Miscellaneous: No hernias are seen. Bones: Unremarkable. IMPRESSION: 1. Postsurgical sequelae. 2. New fat containing anterior abdominal wall hernia with surrounding fat stranding which may indicate incarceration. Clinical correlation recommended. 3. Appendix not seen. No evidence of appendicitis. Dictated by: Dax Ann M.D. on 11/24/2022 at 16:01 Approved by: Dax Ann M.D. on 11/24/2022 at 16:03
[2022-11-24 15:22] LABS: BUN Creatinine Ratio 19.7 (6-22); Blood Urea Nitrogen 14 mg/dL (7-17); Calcium 9.5 mg/dL (8.4-10.2); Carbon Dioxide 27 mmol/L (22-32); Chloride 107 mmol/L (98-107); Estimated Glomerular Filt Rate > 60 mL/min (>60); Glucose 72 mg/dL (80-110); HEMOLYSIS 54 (0-50); Sodium 140 mmol/L (137-145)
[2022-11-24 15:23] LABS: Potassium 3.9 mmol/L (3.4-5.1)
== END ==
PROVIDERS: Referring Provider Surgery; Visit Provider Surgery
DX: K43.9 Ventral hernia without obstruction or gangrene (principal); K57.30 Diverticulosis of large intestine without perforation or abscess without bleeding; R10.9 Unspecified abdominal pain; Z98.890 Other specified postprocedural states; Z87.19 Personal history of other diseases of the digestive system; G89.18 Other acute postprocedural pain; Z90.49 Acquired absence of other specified parts of digestive tract
CPT/HCPCS: 36415; 74177; 80048; Q9967

== ENCOUNTER 2022-11-26 17:49 | Observation (INO) | payer OTHER, MEDICAID, SELFPAY ==
[2022-10-13 22:21] VITALS: BMI 33.6
[2022-11-26 17:58] VITALS: BP 171/72; PULSE 71; RESP 15; TEMP 36.6; O2SAT 98; BMI 352.4
[2022-11-27] VITALS (12 sets, daily range): BP systolic 120–184; BP diastolic 58–79; PULSE 53–73; RESP 5–21; TEMP 36.1–36.7; O2SAT 93–99; BMI 352.4
[2022-11-27] MEDS: ONDANSETRON 4 MG ODT SL (00:07)
--- NOTE | 2022-11-27 00:21 | ED.ABDPAIN ---
HPI - Abdominal Pain General Chief Complaint: Abdominal Pain Stated Complaint: Hernia Time Seen by Provider: 11/27/22 00:12 Source: patient Mode of arrival: Ambulatory History of Present Illness HPI narrative: Patient is a 62-year-old female who has had multiple abdominal surgeries presents today with increasing abdominal pain nausea vomiting. She reports that 2 days ago she was drinking coffee she sneeze she instantly felt pain in her abdomen. She had routine follow-up with her general surgeon who did order an outpatient CT which showed a new fat containing anterior abdominal wall hernia. Patient was given pain medications Zofran and instructed to go home and rest. Patient says that she has been up with her feet up she is been resting she is been doing pain medications Zofran however the pain got to be significantly worse today. She is been nauseous decrease in appetite Related Data Previous Rx's Medication Instructions Recorded ibuprofen 800 mg tablet 800 mg PO TID #30 tabs 11/06/22 docusate sodium 100 mg capsule 100 mg PO BID #30 caps 11/10/22 ondansetron 8 mg disintegrating 8 mg PO Q8H PRN nausea and 11/10/22 tablet vomiting #30 tabs oxycodone-acetaminophen 5 mg-325 2 tab PO Q6H PRN pain #30 tabs 11/24/22 mg tablet Allergies Allergy/AdvReac Type Severity Reaction Status Date / Time morphine Allergy Verified 11/26/22 17:58 Penicillins Allergy Verified 11/26/22 17:58 Review of Systems Review of Systems ROS Unobtainable: All systems reviewed & are unremarkable except as noted in HPI and below Patient History Surgical History History of incisional hernia repair Hx of abdominal surgery Hx of appendectomy Hx of section Hx of hysterectomy Family History Father Diabetes mellitus Hypertension Mother Heart disease Social History household members: none Smoking Status: Never smoker alcohol intake: current Smoking Status: Never smoker alcohol intake frequency: holidays/special occasions only Substance Use Type: marijuana Exam Initial Vital Signs Initial Vital Signs: Vital Signs Temperature 97.8 F 11/26/22 17:58 Pulse Rate 71 11/26/22 17:58 Respiratory Rate 15 11/26/22 17:58 Blood Pressure 171/72 H 11/26/22 17:58 Pulse Oximetry 98 11/26/22 17:58 Oxygen Delivery Method Room Air 11/26/22 17:58 GENERAL: Alert 62-year-old female appears in pain HEENT: Head atraumatic,EOMI, pupils reactive, face symmetric, moist mucous membranes CARDIOVASCULAR: Regular rate and rhythm without murmurs, rubs or gallops. RESPIRATORY: Breath sounds equal bilaterally, no wheezes rales or rhonchi. ABDOMEN: Soft, multiple scars I do actually feel hernia a left of scar tender to touch not reducible, increased bowel sounds no distention EXTREMITIES: Normal range of motion, no clubbing or edema. Neurovascularly intact NEUROLOGICAL: Alert and oriented x4. SKIN: Warm, dry, no laceration, no petechiae, no rashes or lesions. Course Orders Ordered: ED Orders 11/27/22 00:40 Comprehensive Metabolic Panel Stat Lactate (Lactic Acid) Stat Lipase Stat 11/27/22 01:31 Complete Blood Count AUTO DIFF Stat 11/27/22 01:44 CT abdomen pelvis w con Stat Hydromorphone HCl (Hydromorphone 0.5 Mg Inj) 0.5 mg IV Q2H PRN PRN Reason: Pain, Severe (7-10) Sodium Chloride (Normal Saline 0.9%) 1,000 mls @ 125 mls/hr IV CONT SAFIA Ondansetron HCl (Ondansetron 4 Mg/2 Ml Inj) 4 mg IV Q4HR PRN PRN Reason: Nausea And Vomiting Discontinued Medications Hydromorphone HCl (Hydromorphone 1 Mg Inj) 1 mg IV Q15MIN PRN PRN Reason: Pain, Severe (7-10) Last Admin: 11/27/22 03:32 Dose: 1 mg Documented By: Admin: 11/27/22 00:52 Dose: 1 mg Documented By: MING Sodium Chloride (Normal Saline 0.9%) 1,000 mls @ 1,000 mls/hr IV BOLUS ONE Stop: 11/27/22 01:21 Last Infusion: 11/27/22 02:05 Dose: 0 mls/hr Documented By: Admin: 11/27/22 00:53 Dose: 1,000 mls/hr Documented By: MING Ondansetron HCl (Ondansetron 4 Mg Odt) 4 mg SL NOW ONE Stop: 11/27/22 00:03 Last Admin: 11/27/22 00:07 Dose: 4 mg Documented By: MING Vital Signs Vital signs: Vital Signs - 8 hr 11/27/22 01:08 11/27/22 01:10 11/27/22 01:10 Pulse Rate 64 63 Respiratory Rate Blood Pressure 184/79 H Pulse Oximetry 96 97 11/27/22 01:30 11/27/22 02:10 11/27/22 02:12 Pulse Rate 59 L 73 63 Respiratory Rate 21 19 5 L Blood Pressure Pulse Oximetry 95 97 97 11/27/22 02:12 11/27/22 02:30 11/27/22 03:00 Pulse Rate 55 L Respiratory Rate 15 Blood Pressure 178/77 H 136/63 Pulse Oximetry 93 11/27/22 03:00 Pulse Rate 53 L Respiratory Rate 12 Blood Pressure Pulse Oximetry 94 MDM - Abdominal Pain Lab Data 11/27/22 01:31 11/27/22 00:40 Labs: Lab Results 11/27/22 11/27/22 11/27/22 Range/Units 00:40 00:40 01:31 WBC 6.8 (4.5-11.0) X10^3/uL RBC 3.83 L (4.0-5.2) X10^6/uL Hgb 11.1 L (12.0-16.0) g/dL Hct 32.9 L (36-46) % MCV 85.9 (80-100) fL MCH 28.9 (26-34) PG MCHC 33.7 (30-36) % RDW 12.9 (11.6-14.8) % Plt Count 252 (150-400) X10^3/uL Neut % (Auto) 53.7 (50-75) % Lymph % (Auto) 35.2 (25-40) % Gove % (Auto) 10.0 (3-14) % Eos % (Auto) 0.0 L (2-4) % Baso % (Auto) 1.1 (0-2) % Neut # (Auto) 3700 (9485-1238) /uL Lymph # (Auto) 2400 (8200-7835) /uL Gove # (Auto) 700 (0-900) /uL Eos # (Auto) 0 (0-450) /uL Baso # (Auto) 100 (0-100) /uL Sodium 137 (137-145) mmol/L Potassium 4.3 (3.4-5.1) mmol/L Chloride 108 H (98-107) mmol/L Carbon Dioxide 23 (22-32) mmol/L BUN 17 (7-17) mg/dL Creatinine 0.80 (0.52-1.04) mg/dL Estimated GFR > 60 (>60) mL/min BUN/Creatinine Ratio 21.3 (6-22) Glucose 92 (80-110) mg/dL Lactate 0.8 (0.7-2.1) mmol/L Calcium 9.3 (8.4-10.2) mg/dL Total Bilirubin 0.4 (0.2-1.3) mg/dL AST 26 (14-36) IU/L ALT 16 (<35) IU/L Alkaline Phosphatase 81 (38-126) U/L Total Protein 7.2 (6.3-8.2) g/dL Albumin 3.8 (3.5-5.0) g/dL Globulin 3.4 (1.7-4.1) g/dL Albumin/Globulin Ratio 1.1 (1.0-2.8) Lipase 79 (23-300) U/L Imaging Data CT scan - abdomen/pelvis: Radiologist's Impression: Preliminary report ventral line fat containing abdominal wall hernia measuring 4.6 cm probable postsurgical changes from prior ventricle abdominal wall hernia at level of umbilicus. Findings remained stable. Post cholecystectomy and appendectomy and hysterectomy. No bowel containing hernia or evidence of mechanical bowel obstruction MDM Narrative Medical decision making narrative: Patient 62-year-old female multiple histories of abdominal surgeries presenting today with increased abdominal pain. CT from November if shows a new fat containing anterior abdominal wall hernia presenting today with increasing pain. Repeat CT today show something similar that is stable no elevated lactate. Patient is tender no without elevated lactate pain is certainly not out of proportion CT is stable no concern for ongoing ischemia. Other blood work is overall reassuring. Her pain is controlled with Dilaudid. Note from Dr. Dee office reports that if pain worsens she should be admitted to the hospital for inpatient revision. I have called and spoken with Dr. Downs she accepts patient. Discharge Plan Departure Patient Disposition: Admitted as Observation Clinical Impression: Incarcerated hernia Admit Date/Time: 11/27/22 03:16 Admit Provider: Catherine Downs
[2022-11-27] MEDS: HYDROMORPHONE 1 MG INJ IV ×2 (00:52→03:32)
[2022-11-27] MEDS: SODIUM CHLORIDE 0.9% 1,000 ML 1000 ML IV (00:53)
[2022-11-27 00:58] LABS: Alanine Aminotransferase 16 IU/L (<35); Albumin 3.8 g/dL (3.5-5.0); Albumin Globulin Ratio 1.1 (1.0-2.8); Alkaline Phosphatase 81 U/L (38-126); Aspartate Aminotransferase 26 IU/L (14-36); BUN Creatinine Ratio 21.3 (6-22); Bilirubin Total 0.4 mg/dL (0.2-1.3); Blood Urea Nitrogen 17 mg/dL (7-17); Calcium 9.3 mg/dL (8.4-10.2); Carbon Dioxide 23 mmol/L (22-32); Chloride 108 mmol/L (98-107); Estimated Glomerular Filt Rate > 60 mL/min (>60); Globulin 3.4 g/dL (1.7-4.1); Glucose 92 mg/dL (80-110); HEMOLYSIS 42 (0-50); Lactate (Lactic Acid) 0.8 mmol/L (0.7-2.1); Lipase 79 U/L (23-300); Potassium 4.3 mmol/L (3.4-5.1); Sodium 137 mmol/L (137-145); Total Protein 7.2 g/dL (6.3-8.2)
[2022-11-27 01:38] LABS: Add Manual Diff / Slide Review NO; Basophils Absolute Auto 100 /uL (0-100); Basophils Percent Auto 1.1 % (0-2); Eosinophils Absolute Auto 0 /uL (0-450); Hematocrit 32.9 % (36-46); Hemoglobin 11.1 g/dL (12.0-16.0); Lymphocytes Absolute Auto 2400 /uL (1100-4500); Lymphocytes Percent Auto 35.2 % (25-40); Mean Corpuscular HGB Conc 33.7 % (30-36); Mean Corpuscular Hemoglobin 28.9 PG (26-34); Mean Corpuscular Volume 85.9 fL (80-100); Monocytes Absolute Auto 700 /uL (0-900); Neutrophils Absolute Auto 3700 /uL (1500-7000); Neutrophils Percent Auto 53.7 % (50-75); Platelet Count 252 X10^3/uL (150-400); Red Blood Cell Count 3.83 X10^6/uL (4.0-5.2); Red Cell Distribution Width 12.9 % (11.6-14.8); White Blood Cell Count 6.8 X10^3/uL (4.5-11.0)
--- NOTE | 2022-11-27 01:44 | DI.CT.S_ITS ---
PROCEDURE: CT ABDOMEN PELVIS W CON INDICATIONS: pain possible incarerated hernia ct on 11/24/22 TECHNIQUE: After the administration of intravenous contrast, axial sections acquired from the lung bases to the pubic symphysis. Coronal and sagittal reformats were performed. For radiation dose reduction, the following was used: automated exposure control, adjustment of mA and/or kV according to patient size. COMPARISON: [facility], CT, CT ABDOMEN PELVIS W CON, 11/24/2022, 15:27. [facility], CT, CT ABDOMEN PELVIS W CON, 09/21/2022, 19:19. FINDINGS: Image quality: Excellent. Lung bases: Bibasilar atelectasis. Heart: Heart size is normal. Coronary atherosclerotic vascular calcifications are noted. ABDOMEN: Liver: Liver is unremarkable in appearance without focal intrahepatic abnormalities. No intrahepatic or extrahepatic biliary ductal dilatation. Gallbladder: Status post cholecystectomy. Biliary ducts: Unremarkable. Pancreas: Homogeneous enhancement without focal lesions or pancreatic ductal dilatation. No peripancreatic inflammation or organized fluid collections. Spleen: Unremarkable. No splenomegaly Adrenal Glands: Unremarkable. Kidneys and Ureters: Kidneys are symmetric in size and enhancement, and there is no obstructive uropathy. No perinephric inflammatory changes. Ureters are normal in course and caliber. Stomach and Bowel: Stomach, small bowel loops, and colon are unremarkable. Scattered colonic diverticula without acute inflammation. Status post appendectomy. Peritoneum: No abnormal intraperitoneal fluid. No free air. Ventral Wall: Stable postsurgical changes from ventral abdominal hernia repair. Redemonstration of fat containing anterior supraumbilical ventral hernia with adjacent stranding of fat. This is again visualized cephalad to ventral hernia repair. No significant changes compared to the prior study. No new fluid collection. No significant overlying skin changes. Defect of the hernia measures approximately 3.9 cm (37/series 2). Abdominal Nodes: No retroperitoneal or mesenteric adenopathy by size criteria. Vessels: Scattered atherosclerotic calcifications of the abdominal aorta and iliac vessels without aneurysmal dilatation. The inferior vena cava appears patent. PELVIS: Pelvic Organs: Status post hysterectomy. Bladder: Unremarkable. Pelvic Nodes: No enlarged lymph nodes. Miscellaneous: No hernias are seen. Bones: No acute vertebral body compression fractures. Multilevel spondylitic changes throughout the imaged spine. No suspicious osseous lesions. IMPRESSION: 1. Stable appearance of fat containing supraumbilical ventral abdominal hernia with associated fat stranding. This is not significantly changed compared to the prior study and may represent post surgical sequela. No organized fluid collection. Recommend clinical correlation for focal tenderness in this region. 2. Stable postsurgical changes from ventral hernia repair. 3. Status post cholecystectomy, appendectomy, and hysterectomy. 4. Colonic diverticulosis without acute diverticulitis. No significant discrepancy with the sealer sander radiology preliminary report. Dictated by: Sb Mabry M.D. on 11/27/2022 at 7:24 Approved by: Sb Mabry M.D. on 11/27/2022 at 7:33
[2022-11-27] MEDS: SODIUM CHLORIDE 0.9% 1,000 ML 125 ML IV (03:59)
[2022-11-27] MEDS: ONDANSETRON 4 MG/2 ML INJ IV ×3 (06:40→17:24)
[2022-11-27] MEDS: CLINDAMYCIN 900 MG in SODIUM CHLORIDE 0.9% 100 ML 106 MG IV (07:02)
[2022-11-27] MEDS: HYDROMORPHONE 0.5 MG INJ IV ×3 (07:45→17:22)
[2022-11-27] MEDS: CELECOXIB 200 MG CAPSULE PO (08:45)
[2022-11-27] MEDS: GABAPENTIN 100 MG CAPSULE 300 MG PO ×2 (08:45→17:19)
--- NOTE | 2022-11-27 08:47 | CM.DANOTE ---
Addendum entered by Lynn Shen R.N. 11/27/22 15:11: Confirmed with [facility] that their new accepting providers accept [place]/Med[place]. Printed out information on their providers. [facility], in [place], states that Medicaid is accepted. Attempted to see patient again to give her resources, but is currently sleeping. Can check back tomorrow. Original Note: DCP: Case received, EMR reviewed and met with patient. Introduced self and role. Was able to obtain information regarding patient's baseline activity status as well as her current living situation. Patient is a 62 year old female who admitted early this morning to the care of the hospitalist team. PCP: None, currently Payer: confirmed: [place] [employer]/Medicaid. Patient came to the hospital via private vehicle secondary to having increased abdominal pain, nausea, had some vomiting as well. Notes indicate that patient had a follow up with her general surgeon, who had ordered an outpatient CT, showed anterior abdominal wall hernia. Pain then became worse. Patient will be having a surgery consult today. Met with patient in her room. She is alert and oriented, pleasant, sitting up in bed. Confirmed that she resides in [place] alone, he daughter, Carito Tyler, lives in [place]. Patient is independent and drives. Did confirm that she has no primary care provide, and is interested in resources either [employer], or here at [facility]. P: DCP to continue to follow. Patient will be having a surgery consult. Plan is home when stable, can give provider resources upon discharge. Lynn Shen RN/Electric Power Line Repairer Discharge Planning/Care Management CM Discharge Assessment Start: 11/27/22 08:45 Freq: Status: Active Protocol: Document 11/27/22 08:45 (Rec: 11/27/22 08:47 [id number]) Discharge Planning Assessment Assigned Family Resource Management Specialist Lynn Shen RN/Electric Power Line Repairer Advance Directives? No History Provided By Patient,Medical Record Household Members none Type of transporation used prior to Drives own vehicle admit Independent with ADL's Yes Is patient alert and oriented? Yes Caregiver for Another No Comment Home w/daughter Discharge Plan Home Transportation Arrangement Family Referrals Initiated None needed Whiteboard Updated in Patient Room with Yes name and ext. # of Family Resource Management Specialist Review Status In Process Next Review Type Continued Stay Review
--- NOTE | 2022-11-27 17:26 | P.HP_ITS ---
History of Present Illness History of Present Illness Date Patient Seen: 11/27/22 Time Patient Seen: 17:27 Chief complaint: Hernia Narrative: Ms. Golden is a patient well known to me who is a little over 6 weeks status post ventral lap converted open hernia repair. I saw her in my office on Wednesday this week and she has a recurrence. After an episode of coughing and then sitting down the pain was very severe. It did remit after she went home and on night she had another hard sneeze I think and the hernia popped out again and was very very painful. She went to the emergency room on Wednesday morning because of the pain. She had a CT scan and was admitted to the hospital. The CT scan shows a fat containing incarcerated hernia. She was admitted and kept NPO as well as provided IV pain medicine. By the time I saw her on Wednesday afternoon her pain was much much improved. She felt well enough that she was willing to arrange an outpatient hernia repair. She had tolerated a regular food for lunch. [facility] Surgical History History of incisional hernia repair Hx of abdominal surgery Hx of appendectomy Hx of section Hx of hysterectomy Family History Father Diabetes mellitus Hypertension Mother Heart disease Social History household members: none Smoking Status: Never smoker alcohol intake: current Meds Home Medications and Allergies Home Medications Medication Instructions Recorded Confirmed Type ibuprofen 800 mg tablet 800 mg PO TID #30 tabs 11/06/22 11/27/22 Rx docusate sodium 100 mg capsule 100 mg PO BID #30 caps 11/10/22 11/27/22 Rx ondansetron 8 mg disintegrating 8 mg PO Q8H PRN nausea and 11/10/22 11/27/22 Rx tablet vomiting #30 tabs oxycodone-acetaminophen 5 mg-325 2 tab PO Q6H PRN pain #30 tabs 11/24/22 11/27/22 Rx mg tablet diazepam 5 mg tablet (Valium) 5 mg PO BID PRN muscle spasm #7 11/27/22 Rx tabs Allergies Allergy/AdvReac Type Severity Reaction Status Date / Time morphine Allergy Unknown Verified 05/12/23 11:37 Penicillins Allergy Verified 11/26/22 17:58 Exam Vital Signs (past 8 hours): - 11/27/22 11:40 11/27/22 16:51 Temperature 97.7 F 98 F Pulse Rate 62 70 Respiratory Rate 19 18 Blood Pressure 122/69 120/72 Pulse Oximetry 98 98 Oxygen Flow Rate 0 0 Oxygen Delivery Method Room Air Oxygen Flow Rate 0 Const General: cooperative, healthy appearing and comfortable Nutritional Appearance: obese HENMT Head: normal to inspection Mouth: moist mucous membranes Eyes General: appearance normal, both eyes and all related structures Resp Effort & Inspection: normal respiratory effort and able to speak in complete sentences GI Palpation: soft and tender (Very minimal tenderness overlying the recurrent hernia. No peritoneal sign) Other: Her wounds and scars are unchanged from when previously seen in the office Objective Labs 11/27/22 01:31 11/27/22 00:40 Labs: Laboratory Results - last 24 hr 11/27/22 11/27/22 11/27/22 00:40 00:40 01:31 WBC 6.8 RBC 3.83 L Hgb 11.1 L Hct 32.9 L MCV 85.9 MCH 28.9 MCHC 33.7 RDW 12.9 Plt Count 252 Neut % (Auto) 53.7 Lymph % (Auto) 35.2 Tift % (Auto) 10.0 Eos % (Auto) 0.0 L Baso % (Auto) 1.1 Neut # (Auto) 3700 Lymph # (Auto) 2400 Tift # (Auto) 700 Eos # (Auto) 0 Baso # (Auto) 100 Sodium 137 Potassium 4.3 Chloride 108 H Carbon Dioxide 23 BUN 17 Creatinine 0.80 Estimated GFR > 60 BUN/Creatinine Ratio 21.3 Glucose 92 Lactate 0.8 Calcium 9.3 Total Bilirubin 0.4 AST 26 ALT 16 Alkaline Phosphatase 81 Total Protein 7.2 Albumin 3.8 Globulin 3.4 Albumin/Globulin Ratio 1.1 Lipase 79 Assessment & Plan Assessment and plan (1) Incarcerated hernia: Status: Acute (2) Recurrent abdominal hernia: Status: Acute Plan I discussed with Ms. Golden that the recurrence is still there CT scan redemonstrated this and it was fat containing rather than containing bowel how ever if the pain is severe than we should proceed with surgery sooner than later. Ms. Golden had discussed recurrent hernia repair with me in the office and did want to proceed. She now feels well enough that she thinks she will do fine until Wednesday in order that we can schedule this semi electively. I would still consider it an urgent case. However if she is well because it is Wednesday and it is preferable to schedule a case rather than do it on the weekend we will make the arrangements for that. She has plenty of pain medicine she does not request a refill and her pain is much better than it was when she came to the emergency room. Additionally I have written a few tabs of Valium that she could use if the hernia gets caught again at to help reduce it at home and bridge her until Wednesday when we can repair this. I discussed the risks benefits and alternatives of recurrent ventral hernia repair and laparoscopic possible open fashion and also a wound revision because of some wound healing issues. She will need to extend her disability coverage for 8 weeks. I have offered to sign and help her fill out any paperwork that she brings with her on Wednesday
--- NOTE | 2022-11-27 17:34 | PM.DS.1 ---
History of Present Illness History of Present Illness Chief complaint: Hernia Narrative: Ms. Golden is a patient well known to me who is a little over 6 weeks status post ventral lap converted open hernia repair. I saw her in my office on Wednesday this week and she has a recurrence. After an episode of coughing and then sitting down the pain was very severe. It did remit after she went home and on night she had another hard sneeze I think and the hernia popped out again and was very very painful. She went to the emergency room on Wednesday morning because of the pain. She had a CT scan and was admitted to the hospital. The CT scan shows a fat containing incarcerated hernia. She was admitted and kept NPO as well as provided IV pain medicine. By the time I saw her on Wednesday her pain was much much improved. She felt well enough that she was willing to arrange an outpatient hernia repair. She had tolerated a regular food for lunch. Discharge Providers Provider Date of admission: 11/27/22 03:16 Discharge Date: 11/27/22 Primary care physician: Doctor Azra MD Discharge provider: Chantal Reza MD Summary Hospital Course Hospital Course: Patient was admitted and provided with IV pain medicine. These maneuvers did help reduce her hernia at least partially an very much relieved her pain to the point where she was able to be discharged. A plan for urgent repair was made and will be coordinated through my office on Wednesday. Time Spent with Patient Time spent: Less than 30 minutes Exam Vital Signs (past 8 hours): - 11/27/22 11:40 11/27/22 16:51 Temperature 97.7 F 98 F Pulse Rate 62 70 Respiratory Rate 19 18 Blood Pressure 122/69 120/72 Pulse Oximetry 98 98 Oxygen Flow Rate 0 0 Oxygen Delivery Method Room Air Oxygen Flow Rate 0 Objective Labs 11/27/22 01:31 11/27/22 00:40 Labs: Laboratory Results - last 24 hr 11/27/22 11/27/22 11/27/22 00:40 00:40 01:31 WBC 6.8 RBC 3.83 L Hgb 11.1 L Hct 32.9 L MCV 85.9 MCH 28.9 MCHC 33.7 RDW 12.9 Plt Count 252 Neut % (Auto) 53.7 Lymph % (Auto) 35.2 [place] % (Auto) 10.0 Eos % (Auto) 0.0 L Baso % (Auto) 1.1 Neut # (Auto) 3700 Lymph # (Auto) 2400 [place] # (Auto) 700 Eos # (Auto) 0 Baso # (Auto) 100 Sodium 137 Potassium 4.3 Chloride 108 H Carbon Dioxide 23 BUN 17 Creatinine 0.80 Estimated GFR > 60 BUN/Creatinine Ratio 21.3 Glucose 92 Lactate 0.8 Calcium 9.3 Total Bilirubin 0.4 AST 26 ALT 16 Alkaline Phosphatase 81 Total Protein 7.2 Albumin 3.8 Globulin 3.4 Albumin/Globulin Ratio 1.1 Lipase 79 PFSH Surgical History History of incisional hernia repair Hx of abdominal surgery Hx of appendectomy Hx of section Hx of hysterectomy Family History Father Diabetes mellitus Hypertension Mother Heart disease Social History household members: none Smoking Status: Never smoker alcohol intake: current Discharge Plan Discharge Plan Patient Disposition: Home Provider Discharge Comment: I have arranged a OR spot for you on 11/27/2022 for a laparoscopic possible open recurrent ventral incisional hernia repair and wound revision. Discharge orders & Medications Prescriptions: New diazepam [Valium] 5 mg tablet 5 mg PO BID PRN (Reason: muscle spasm) Qty: 7 0RF Rx Instructions: take to help reduce hernia as needed until surgery date, Wednesday11/27/22 Continued oxycodone-acetaminophen 5-325 mg tablet 2 tab PO Q6H PRN (Reason: pain) Qty: 30 0RF Rx Instructions: May take 1-2 tabs as needed every 6 hours for pain. ibuprofen 800 mg tablet 800 mg PO TID Qty: 30 0RF Rx Instructions: Take 3 times a day along with scheduled Tylenol. You may titrate the oxycodone portion as needed. Once you no longer need oxycodone and are only taking ibuprofen and Tylenol then you may stop 1 or the other docusate sodium 100 mg capsule 100 mg PO BID Qty: 30 0RF ondansetron 8 mg tablet,disintegrating 8 mg PO Q8H PRN (Reason: nausea and vomiting) Qty: 30 0RF Follow up/Referrals: Chantal Reza MD [Physician] - (The office staff should call you on Wednesday and the operating room should give you instructions on Wednesday as well) Doctor Oquendo MD [Primary Care Provider] - Diet/Activity/Treatments Diet: Diet as Tolerated and Regular Activity: Please avoid heavy lifting or strenuous activity. Take it easy until surgery! Skin/Wound/Dressing Care Report to your healthcare provider any signs of infection, such as:: chills, fever, night sweats, increased pain, unusual drainage and unusual redness Visit Report/Discharge Packet Stand Alone Forms: Patient Portal/API, Stroke Signs & Symptoms Discharge Data Primary Care Provider: Doctor Azra Attending Provider: Catherine Downs Admit Date/Time: 11/27/22 03:16
--- NOTE | 2022-11-27 19:02 | PC.NURSE ---
Pt is A&OX4, VSS, afebrile on RA. She is independent in her room, c/o abdominal pain and intermittent nausea well controlled with PRN medications. She is tolerating a regular diet well this afternoon. She reports passing gas, and having a bowel movement which she states causes increased pain. 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 abdomen soft and tender. MD Reza at bedside this evening clearing patient for discharge home with plan to return next Wednesday for surgery. Patient verbalizes understanding of discharge medications,activity and follow up.
== END 2022-11-27 19:15 | disposition home or self-care (01) ==
LOC: ED 11-27 00:12 → AC 11-27 03:19
PROVIDERS: Admitting Provider Surgery; Emergency Provider Emergency Medicine; Visit Provider Surgery
DX: K46.0 Unspecified abdominal hernia with obstruction, without gangrene (principal); Z98.890 Other specified postprocedural states
CPT/HCPCS: 74177; 80053; 83605; 83690; 85025; 96361; 96365; 96375; 96376; 99234; 99284; G0378; J1170; J2405; Q9967; S0077

== ENCOUNTER 2022-12-02 12:04 | Inpatient (IN) | payer OTHER, MEDICAID, SELFPAY ==
[2022-11-27 03:54] VITALS: BMI 352.4
[2022-11-30 08:39] VITALS: BMI 33.1
[2022-12-01] VITALS (24 sets, daily range): BP systolic 128–171; BP diastolic 61–83; PULSE 48–90; RESP 12–27; TEMP 36.2–37.7; O2SAT 90–98; BMI 33.1
--- NOTE | 2022-12-01 07:44 | PM.PREOP ---
Pre-operative Note Interval Note History & Physical reviewed/Exam performed by Physician: Yes Changes to H&P: No
[2022-12-01] MEDS: CEFAZOLIN 2 GM/100 ML PREMIX 100 ML IV (07:57)
--- NOTE | 2022-12-01 08:22 | SUR.OPER ---
Supine on padded OR bed, head on pillow, arms padded and tucked at sides, legs uncrossed, safety belt at thigh, tape over blanket over lower legs .
[2022-12-01] MEDS: BUPIVACAINE 0.25% (PF) VIAL 30 ML INJ (08:29)
[2022-12-01] MEDS: LACTATED RINGERS 1,000 ML 42 ML IV (10:00)
[2022-12-01] MEDS: BUPIVACAINE 0.25% (PF) 30 ML, EPINEPHrine 0.15 MG INJ (10:18)
[2022-12-01] MEDS: HYDROMORPHONE 2 MG INJ IV ×4 (10:54→11:20)
[2022-12-01] MEDS: ONDANSETRON 4 MG/2 ML INJ IV (10:56)
--- NOTE | 2022-12-01 11:06 | SUR.PHASEI ---
Dr Elizalde to bedside. informed that pt wakes up crying, moaning. See new orders.
[2022-12-01] MEDS: KETOROLAC 30 MG/ML VIAL IV (11:23)
[2022-12-01] MEDS: ACETAMINOPHEN IV 1,000 MG/100 ML VIAL 400 MG IV (11:26)
--- NOTE | 2022-12-01 11:30 | PM.OP.1 ---
Operative Date/Time/Diagnoses Date of procedure: 12/01/22 Pre-op diagnosis: Recurrent incisional incarcerated hernia, containing omentum/fat Wound healing problems Post-op diagnosis: same Procedure & Clinicians Procedure: Laparoscopic recurrent incisional hernia repair and wound revision Same procedure as scheduled: Yes Indications: Ms. Golden is well known to me and originally came to my office with a large incisional ventral hernia. She underwent repair approximately 6 weeks ago and suddenly felt some pain prior to presenting at my clinic and a much smaller recurrence was found. I discussed the findings as well as risks benefits and alternatives of a recurrent hernia repair. She wished to proceed. Surgeon: Chantal Reza Filament Shaper: Cipriano Nathan Anesthesia Type: General Operative Notes Specimen(s): none sent Prosthetic devices, grafts, tissues, transplants, or devices: extra large Ventrio ST 8.7 x 10.7 in mesh Estimated Blood Loss (mL): 20 Procedure in detail: Patient was taken to the operating room placed supine on the operating room table. A time-out was performed. Bilateral SCDs were placed and preoperative antibiotics administered. General endotracheal anesthesia was induced. The abdomen was then prepped and draped in the usual sterile fashion. The right arm was tucked. A local anesthetic was infused around the previously used 12 mm Brennan trocar scar. An 11 blade scalpel was used to incise the scar. Electrocautery was used to carry the incision down through the subcutaneous tissues. Two Jax retractors were used to grasp the fascia and elevate it. The abdomen was entered under direct visualization using a Metzenbaum. There were some adhesions inferior to the incision but the abdominal cavity was entered relatively easily. The Jax retractors were used to place two very good 0 Vicryl sutures for the sake of closure. The Brennan trocar was then placed under direct visualization and the abdomen was insufflated. A 30 degree 5 mm laparoscopic camera was introduced into the abdomen. The abdomen was inspected and there was no sign of entry injury. There were adhesions. There was a set of adhesions superior to the recurrent hernia and inferior to the 12mm trochar site. Two additional 5 mm accessory trocars were placed in the right upper quadrant and right lateral positions to address these adhesions. These adhesions included some omentum but there was also a loop of small bowel within them. In order to get a good view of the hernia and to make space to land the mesh these adhesions had to be taken down. This was done carefully under direct visualization using laparoscopic scissors. Some electrocautery was used in the omental portions to provide hemostasis. After this area was cleared up attention was turned to the incarcerated hernia. There was omental tissue within the defect. With the lysis of adhesions using both laparoscopic scissors and blunt dissection the omental tissue was freed from the hernia defect. The hernia defect was 5 cm in maximal length. It was located in the inferior portion of the previous repair and the sac extended left and superior. After clearing away the hernia and measuring the defect, a mesh was chosen. I wanted to be sure that I had a mesh large enough and there was no mesh available between the size of 8 cm and the extra-large that was chosen. I thought the extra-large was a better choice because the original incision was quite long and the extra coverage will help to prevent further recurrence. In other words I would rather err on the side of a mesh that is too large then a mesh that is too small. In the end this mesh ended up fitting quite nicely. The mesh was placed into the abdomen through the 12 mm incision. The trochar had to be removed to fit the mesh into the abdomen. Prior to placing it in the abdomen, it was tacked with 0 Prolene sutures in 4 quadrants. The inferior most Prolene suture was placed through the inner ring in order to provide a lip that could go over the pelvic ridge. The other 3 quadrants were tacked through the outer ring. First the inferior most Prolene suture was secured by making a small suprapubic incision with an 11 blade scalpel and putting a Sebastián Roman device through the abdominal wall. This device was used to grab the ends of the Prolene sutures twice and the sutures were clamped, to hold them in place prior to tightening and tying them down. Next this process was repeated with the right lateral suture. The Sebastián Roman device was placed on either side of 1 of the 5 mm accessory trocar sites. The left lateral position was then secured in the same fashion through a small stab wound. The superior most Prolene suture was secured using a Sebastián Roman device puncturing the superior and inferior aspect of the 12 mm Brennan trocar incision. Prior to tying down and tightening these 4 sutures a laparoscopic camera was reintroduced into the abdomen and threaded underneath the mesh to observe how the mesh would lay in the abdominal cavity. Some additional lysis of adhesions was required in the left lower quadrant so that the mesh would lay flat against the abdominal wall. This was done with laparoscopic scissors. Photographs were obtained of the mesh and how it was lying after tightening the sutures and decreasing the abdominal pressure. Of note, there were some photographs obtained previously of the hernia itself, and the other superior adhesions. The abdomen was then desufflated and a laparoscopic grasper was used to hold the mesh flat over the pelvic ridge. The the sutures were tied down. The trocars were removed. Next attention was turned to the lower midline scar. Local anesthesia was infused around the area and a 10. Blade scalpel was used to excise the previous scar including a small sinus to the right of the original scar in an elliptical shape encompassing the entire old scar. This incision was carried through the subcutaneous tissue. A handheld electrocautery was used to remove the bottom layers of the scar and subcutaneous tissue as well as obtain hemostasis in the wound. Next 3-0 Vicryl sutures were used in an interrupted fashion to close the subcutaneous tissue layer. Finally a running 4-0 Monocryl subcuticular layer was placed to close the skin. The wounds were dressed with Steri-Strips. The laparoscopic port sites were closed with interrupted (the larger camera site was closed with running sutures) Monocryl sutures and dressed with Steri-Strips as well. The patient tolerated the procedure well the EBL was minimal there were no complications and she went in good condition to the postoperative care unit Complications: none
[2022-12-01] MEDS: MEPERIDINE 50 MG/ML INJ 12.5 MG IV ×2 (11:46→11:54)
[2022-12-01] MEDS: OXYCODONE IR 5 MG TABLET 10 MG PO (12:25)
--- NOTE | 2022-12-01 12:28 | SUR.PHASEI ---
[address] Solano for oral pain medication order.
--- NOTE | 2022-12-01 12:59 | SUR.PHASEI ---
Pt in holding pending bed on inpatient unit. SBAR report to Sia SERNA.
--- NOTE | 2022-12-01 13:55 | SUR.PHASEI ---
Assumed care of pt from Joyce SERNA while she went to lunch. Got pt up to bathroom with assist of two people. Pt states that her pain is a bit better. She also states that her pain is better since she went to the bathroom. Will take pt upstairs when room is ready. Guerline SERNA states it would be about 10 minutes.
[2022-12-01 14:07] LABS: COVID19 -Nasal RAPID Negative (Negative)
[2022-12-01] MEDS: HYDROMORPHONE 0.5 MG INJ IV ×3 (14:37→23:01)
[2022-12-01] MEDS: diazePAM 5 MG TABLET PO ×2 (16:59→22:49)
[2022-12-01] MEDS: IBUPROFEN 400 MG TABLET 800 MG PO ×2 (16:59→22:49)
[2022-12-01] MEDS: ACETAMINOPHEN 325 MG TABLET 975 MG PO ×2 (18:16→22:48)
[2022-12-01] MEDS: DOCUSATE 100 MG CAPSULE PO (22:49)
[2022-12-02 02:07] VITALS: BP 147/71; PULSE 18; RESP 18; TEMP 37.3; O2SAT 93
[2022-12-02 04:24] VITALS: BP 149/73; PULSE 68; RESP 20; TEMP 37.6; O2SAT 96
[2022-12-02] MEDS: OXYCODONE IR 10 MG TABLET PO ×6 (04:38→22:06)
[2022-12-02] MEDS: ACETAMINOPHEN 325 MG TABLET 975 MG PO ×2 (04:38→17:53)
[2022-12-02 07:00] VITALS: BP 143/57; PULSE 65; RESP 18; TEMP 37.5; O2SAT 93
[2022-12-02] MEDS: DOCUSATE 100 MG CAPSULE PO ×2 (08:04→22:06)
[2022-12-02] MEDS: IBUPROFEN 400 MG TABLET 800 MG PO (08:04)
[2022-12-02] MEDS: ENOXAPARIN 40 MG/0.4 ML SYRINGE SUBCUT (08:04)
--- NOTE | 2022-12-02 11:34 | PM.PNPO.1 ---
Subjective Subjective Date Patient Seen: 12/02/22 Time Patient Seen: 11:34 Interval history: pain across lower abdomen Exam Vital Signs (past 8 hours): - 12/02/22 04:24 12/02/22 07:00 Temperature 99.7 F H 99.5 F Pulse Rate 68 65 Respiratory Rate 20 18 Blood Pressure 149/73 H 143/57 H Pulse Oximetry 96 93 Oxygen Flow Rate 0 0 Oxygen Delivery Method Room Air Oxygen Flow Rate 0 Narrative Exam Narrative: wounds well approximated, no complications. pain control an issue. Worried about paperwork from her work that needs to be turned in today. Objective Labs Labs: Laboratory Results - last 24 hr 12/01/22 13:42 SARS-CoV-2 (PCR) Negative PFSH Surgical History History of incisional hernia repair Hx of abdominal surgery Hx of appendectomy Hx of section Hx of hysterectomy Family History Father Diabetes mellitus Hypertension Mother Heart disease Social History household members: none Smoking Status: Never smoker alcohol intake: current Assessment & Plan Post-op Postoperative Procedures: Procedures Operation Date: 12/01/22 07:45 Actual Procedure Side Surgeon p Laparoscopic Ventral Hernia Repair poss. open, wound revision Chantal Reza MD Postoperative day: 1 Postoperative status: doing well and marginal pain control Postoperative plan: routine post-op care Postoperative plan narrative: Added gabapentin and Gas X to pain control. Changed ibuprofen to Celebrex 200mg po BID. Time Spent With Patient Time with patient: 15-24 minutes Quality VTE Deep Vein Thrombosis/Pulmonary Embolism Present on Admission: No
--- NOTE | 2022-12-02 11:56 | CM.DANOTE ---
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 DORY Original Note: DCP: patient is a 62 yo female here under OBS status for elective hernia repair. CM team entered room and introduced self and roles. Patient was A/Ox4 and reported being in a lot of pain/chilly and was pleasant to chat with despite being in a lot of pain. CM brought her a warm blanket to help with the chills. Patient reports that she lives alone in her home in [place] with her dog. Her daughter/DPMARTA Arzate ([phone]) lives 15 minutes away and is available and willing to help with patient's post op recovery. Patient reports she is independent with her ADLs and normally drives her own vehicle. Patient reports struggling to get up and go to the bathroom independently at this time due to pain. RN made aware. Patient reports being concerned about work release note being completed by her surgeon but reported talking to Dr. Downs about getting it completed before discharge. Patient reported that Dr. Downs may desire to keep her overnight under observation to keep an eye on patient's pain levels. Patient requested for something to drink, CM team provided her with a luna kavon and straw. RN made aware. Insurance: 1) [place] 2) Medicaid PCP: None at this time. CM team will provide patient with list. Plan: CM team will continue to follow closely for any d/c needs that may arise. Plan at this time is home when medically stable. Daughter will transport home in [place]. SANGEETA Paul Discharge Planning/Care Management CM Discharge Assessment Start: 12/02/22 11:54 Freq: Status: Active Protocol: Document 12/02/22 11:54 DORY (Rec: 12/02/22 11:56 DORY [id number]) Discharge Planning Assessment Assigned User Experience Designer SANGEETA Paul DPMARTA/Assigned Designee Name daughter Carito Contact Information [phone] Advance Directives? No History Provided By Patient,Medical Record Prior Living Arrangements House Household Members none Type of transporation used prior to Drives own vehicle admit Independent with ADL's Yes Is patient alert and oriented? Yes Barriers to Discharge No Comment Home w/daughter Discharge Plan Home Transportation Arrangement Family Referrals Initiated None needed Whiteboard Updated in Patient Room with Yes name and ext. # of User Experience Designer Review Status In Process Next Review Type Continued Stay Review Pre-Anesthesia Assessment Start: 11/30/22 08:39 Freq: Status: Active Protocol: Document 11/30/22 08:39 [facility] (Rec: 11/30/22 08:45 [facility] [id number]) Pre-Anesthesia Assessment Patient Information Reviewed Via Chart Review Seen Specialist in Last 12 Months Yes Specialist Seen Emergency,General surgeon Primary Language North Korean Preferred Language North Korean Chicken Raiser Required No Height 160.02 cm Weight 84.822 kg Body Mass Index (BMI) 33.1 Barriers to Learning None Hx Anesthesia Reactions No Hx Family Anesthesia Reaction No Hx Malignant Hyperthermia No Anesthesia Review Requested No Manager Packaging No alcohol intake current alcohol intake frequency holidays/special occasions only Smoking Status Never smoker Substance Use Type marijuana Pain Present Pain Reported Patient is completely paralyzed or No completely immobile Mental Status Oriented to own ability Is patient on oxygen? No Hx Sleep Apnea No CPAP/BIPAP use not prescribed Currently Taking a Beta Apryl No Anti-Coagulant Therapy No Cardiac Testing No Hx Pacemaker/ICD No Pacemaker Rep Required? No Urinary Catheter Present No Hx Urinary Self Catheterization No Diabetes No Patient No Lactating No Presence of External or Internal Medical Yes: metal nicole in left arm, Devices hernia mesh Received a COVID vaccine? Yes Marital Status Lives With none Patient Discharge Plan Description Return Home Do You Have Any Spiritual Beliefs That No May Affect Your HC Choices? Do You Have Any Cultural Practices That No May Affect Your HC Choices? Advance Directives? No Stop Bang Assessment Do you snore loudly (louder than talking No or loud enough to be heard through closed doors) Do you often feel tired, fatigued or Yes sleepy during the daytime Has anyone ever observed you stop No breathing while sleeping? Do you have, or are you being treated No for, high blood pressure Is your BMI more than 35 kg/m2 Yes Age over 50 Yes Estimated neck circumference greater No than 40cm or 16in Gender male No Result Negative
[2022-12-02] MEDS: GABAPENTIN 100 MG CAPSULE 300 MG PO ×3 (12:01→22:05)
[2022-12-02] MEDS: CELECOXIB 200 MG CAPSULE PO ×2 (12:01→22:06)
[2022-12-02] MEDS: SIMETHICONE 80 MG TABLET PO ×2 (12:01→18:59)
[2022-12-02] MEDS: diazePAM 5 MG TABLET PO ×2 (12:04→22:06)
[2022-12-02 19:00] VITALS: BP 151/81; PULSE 59; RESP 18; TEMP 36.9; O2SAT 97
[2022-12-03] MEDS: HYDROMORPHONE 0.5 MG INJ IV ×3 (01:07→17:30)
[2022-12-03] MEDS: ACETAMINOPHEN 325 MG TABLET 975 MG PO ×2 (06:06→12:10)
[2022-12-03 07:41] VITALS: BP 162/72; PULSE 53; RESP 18; TEMP 36.4; O2SAT 98
[2022-12-03] MEDS: CELECOXIB 200 MG CAPSULE PO ×2 (08:36→21:02)
[2022-12-03] MEDS: DOCUSATE 100 MG CAPSULE PO ×2 (08:36→21:02)
[2022-12-03] MEDS: OXYCODONE IR 10 MG TABLET PO ×4 (08:36→21:02)
[2022-12-03] MEDS: ENOXAPARIN 40 MG/0.4 ML SYRINGE SUBCUT (08:36)
[2022-12-03] MEDS: GABAPENTIN 100 MG CAPSULE 300 MG PO ×2 (08:36→14:09)
[2022-12-03] MEDS: diazePAM 5 MG TABLET PO ×2 (09:31→22:42)
--- NOTE | 2022-12-03 13:14 | PM.PN.1 ---
Subjective Subjective Date Patient Seen: 12/03/22 Time Patient Seen: 13:14 Interval history: Feeling better today. Pain better controlled and feeling more like able to get out of bed and move around. Complaining of some dysuria. She is having frequent urination and feels that she is urinating larger than normal amount. She thinks that each void does have a normal amount of urine in it (not less). She does not feel fullness after voiding. She states that the pain usually starts about the time that her void begins and seems to get worse as the bladder empties down. There has been no hematuria and her urine has been light yellow color. Exam Vital Signs (past 8 hours): - 12/03/22 07:41 Temperature 97.6 F Pulse Rate 53 L Respiratory Rate 18 Blood Pressure 162/72 H Pulse Oximetry 98 Oxygen Flow Rate 0 Oxygen Delivery Method Room Air Oxygen Flow Rate 0 Narrative Exam Narrative: No acute distress lying down in bed eating general diet for lunch Abdomen is soft appropriately tender without erythema or drainage. The Steri-Strips from the operation are intact and clean and dry. [facility] Surgical History History of incisional hernia repair Hx of abdominal surgery Hx of appendectomy Hx of section Hx of hysterectomy Family History Father Diabetes mellitus Hypertension Mother Heart disease Social History household members: none Smoking Status: Never smoker alcohol intake: current Assessment & Plan Assessment and plan (1) Postoperative abdominal pain: Status: Acute (2) Recurrent abdominal hernia: Status: Acute (3) Dysuria: Status: Acute Assessment & Plan narrative: Postoperative day 2 status post laparoscopic recurrent incisional hernia repair. Doing relatively well. Still having severe postoperative pain and having difficulty with ambulation independently. She also is having dysuria as described in subjective portion. I will continue her current pain medications as I think that they are working and order an abdominal binder which she can wear for comfort. I have encouraged her to ambulate in the halls if possible today I will check a postvoid residual and a UA and monitor the dysuria for now. Continue DVT prophylaxis with Lovenox. Quality VTE Deep Vein Thrombosis/Pulmonary Embolism Present on Admission: No
[2022-12-03 14:34] LABS: Appearance Urine UA CLEAR; Bilirubin Urine UA NEGATIVE (NEGATIVE); Color Urine UA YELLOW; Glucose Urine UA NEGATIVE (Negative); Ketones Urine UA NEGATIVE (NEGATIVE); Leukocyte Esterase Urine UA NEGATIVE (NEGATIVE); Nitrite Urine UA NEGATIVE (Negative); Occult Blood Urine UA TRACE-INTACT (Negative); Protein Urine UA NEGATIVE (Negative); Urobilinogen Urine UA 0.2 E.U./dL (0.2)
--- NOTE | 2022-12-03 14:34 | PC.NURSE ---
Day shift: Post-void bladder scan 78 mls at approx 1245 today.
[2022-12-03 15:03] LABS: RBC Urine 0-1/HPF (0-5/HPF); Squamous Epithelial Cell Urine 1-5 /HPF (0-5/HPF); Transitional Epi Cells Urine 0-1/HPF (0-5/HPF); WBC Urine 0-1/HPF (0-5/HPF)
[2022-12-03 15:04] LABS: Bacteria Urine None Seen; Culture Indicated Urine Cult Not Indicated
[2022-12-03 19:55] VITALS: BP 133/72; PULSE 58; RESP 19; TEMP 36.2; O2SAT 97
[2022-12-03] MEDS: GABAPENTIN 300 MG CAPSULE PO (21:02)
[2022-12-03] MEDS: polyethylene glycoL 3350 17 GM POWD.PACK PO (22:42)
[2022-12-04] MEDS: HYDROMORPHONE 0.5 MG INJ IV ×6 (00:02→17:23)
[2022-12-04] MEDS: ACETAMINOPHEN 325 MG TABLET 975 MG PO ×2 (03:55→10:50)
[2022-12-04 07:45] VITALS: BP 145/69; PULSE 55; RESP 16; TEMP 36.1; O2SAT 98
[2022-12-04] MEDS: polyethylene glycoL 3350 17 GM POWD.PACK PO (07:57)
[2022-12-04] MEDS: GABAPENTIN 300 MG CAPSULE PO ×2 (07:57→14:04)
[2022-12-04] MEDS: ENOXAPARIN 40 MG/0.4 ML SYRINGE SUBCUT (07:58)
[2022-12-04] MEDS: CELECOXIB 200 MG CAPSULE PO (07:58)
[2022-12-04] MEDS: DOCUSATE 100 MG CAPSULE PO (07:58)
[2022-12-04] MEDS: OXYCODONE IR 10 MG TABLET PO ×4 (07:58→16:43)
--- NOTE | 2022-12-04 10:32 | CM.DPC ---
DCP Cont: Per MD, pt making progress but continues with some pain management issues. Per UR RN, due to need for ongoing IV dilaudid, pt may be able to convert to Inpt rather than OBS and will review. Plan: SW to follow for plan of return home with local Dtr assist and transport once pt's pain better managed. SANGEETA Dexter
[2022-12-04] MEDS: diazePAM 5 MG TABLET PO (10:50)
--- NOTE | 2022-12-04 15:04 | P.DS_ITS ---
History of Present Illness History of Present Illness Date Patient Seen: 12/04/22 Time Patient Seen: 12:00 Chief complaint: SDC Narrative: Ms. Golden is a patient well known to me who is a little over 6 weeks status post ventral lap converted open hernia repair.? I saw her in my office on Wednesday this week and she has a recurrence.? After an episode of coughing and then sitting down the pain was very severe.? It did remit after she went home and on night she had another hard sneeze I think and the hernia popped out again and was very very painful.? She went to the emergency room on Wednesday morning because of the pain.? She had a CT scan and was admitted to the hospital.? The CT scan shows a fat containing incarcerated hernia.? She was admitted and kept NPO as well as provided IV pain medicine.? By the time I saw her on Wednesday her pain was much much improved.? She felt well enough that she was willing to arrange an outpatient hernia repair.? She then presented for operative repair on Wednesday the week after her hospitalization and had been doing relatively well though requiring pain medicines and Valium which were helping, she, understanding the risks, wished to proceed with operative repair. Discharge Providers Provider Date of admission: 12/04/22 12:53 Discharge Date: 12/04/22 Primary care physician: Doctor Azra MD Discharge provider: Chantal Reza MD Summary Hospital Course Discharge Diagnosis: Postoperative abdominal pain status post laparoscopic recurrent incisional ventral hernia repair Hospital Course: Ms. Golden was admitted postoperatively to the [facility] where she was treated for mostly pain. She had some nausea but was able to tolerate her diet being advanced as tolerated. She was discharged home in good condition on postoperative day 3 having controlled her pain with oral pain medications and tolerated a regular diet. On postoperative day 2 she complained of some dysuria and UA and bladder scan were performed. These showed no evidence of urinary tract infection or urinary retention and were improved on postoperative day 3 prior to discharge. Status at Discharge Cognitive/behavioral status at discharge: oriented and at baseline, oriented Functional status at discharge: independent ambulation Overall status at discharge: patient is progressing back to baseline Time Spent with Patient Time spent: Less than 30 minutes Exam Vital Signs (past 8 hours): - 12/04/22 07:45 Temperature 97.0 F L Pulse Rate 55 L Respiratory Rate 16 Blood Pressure 145/69 H Pulse Oximetry 98 Oxygen Flow Rate 0 Oxygen Delivery Method Room Air Oxygen Flow Rate 0 Narrative Exam Narrative: She was awake alert oriented and in no acute distress. She is lying supine in bed. The wounds are clean dry and intact her abdomen is appropriately tender. There is no erythema or drainage. Objective Labs Labs: Laboratory Results - last 24 hr 12/03/22 13:43 Urine RBC 0-1/hpf Urine WBC 0-1/hpf Ur Squamous Epith Cells 1-5 /hpf Ur Transition Epith Cell 0-1/hpf Urine Bacteria None seen Ur Culture Indicated? Cult not indicated PFSH Surgical History History of incisional hernia repair Hx of abdominal surgery Hx of appendectomy Hx of section Hx of hysterectomy Family History Father Diabetes mellitus Hypertension Mother Heart disease Social History household members: none Smoking Status: Never smoker alcohol intake: current Discharge Assessment & Plan Assessment and Plan Assessment: Doing well postoperative day 3 and discharged home today. Plan of Treatment: Will plan to see her in follow-up in 7-10 days. She was given the normal postoperative instructions as well as prescriptions for pain medication and Valium which she says continues to help with the postoperative pain. Her uri nary symptoms have improved her UA and bladder scans were unremarkable. I encouraged her to call the office any time or contact the on-call surgeon through the answering service with any questions or concerns any time. Discharge Plan Discharge Plan Patient Disposition: Home Discharge orders & Medications Prescriptions: Continued ondansetron 8 mg tablet,disintegrating 8 mg PO Q8H PRN (Reason: nausea and vomiting) Qty: 30 0RF ibuprofen 800 mg tablet 800 mg PO TID Qty: 30 0RF Rx Instructions: Take 3 times a day along with scheduled Tylenol. You may titrate the oxycodone portion as needed. Once you no longer need oxycodone and are only taking ibuprofen and Tylenol then you may stop 1 or the other oxycodone-acetaminophen 5-325 mg tablet 2 tab PO Q6H PRN (Reason: pain) Qty: 60 0RF Rx Instructions: May take 1-2 tabs as needed every 6 hours for pain. docusate sodium 100 mg capsule 100 mg PO BID Qty: 30 0RF diazepam [Valium] 5 mg tablet 5 mg PO BID PRN (Reason: muscle spasm) Qty: 25 0RF Rx Instructions: take to help reduce hernia as needed until surgery date, Wednesday11/27/22 Follow up/Referrals: Chantal Reza MD [Physician] - (Please call the office 08/02 with any quest ions or concerns. After hours or on the weekends there is a surgeon on-call who is happy to answer any questions. Please stay on the line and send a message through the answering service. ) Doctor Oquendo MD [Primary Care Provider] - Diet/Activity/Treatments Diet: Diet as Tolerated and Regular Activity: No lifting greater than 30 lb for 4 weeks after surgery. Do not do any strenuous activity. Normal activity such as walking outside and climbing stairs, is ok. If you notice pain, stop. You may drive when you no longer are taking Narcotic pain medication. Skin/Wound/Dressing Care Report to your healthcare provider any signs of infection, such as:: chills, fever, night sweats and increased pain Visit Report/Discharge Packet Instructions: DI for Hernia Repair, DI for Laparoscopy, DI for Prescription Opioid Use, [facility]: Wound Care Stand Alone Forms: Patient Portal/API, Stroke Signs & Symptoms, Surgery Discharge Discharge Data Primary Care Provider: Doctor Azra Discharges patient from system. Discharge Date/Time: 12/04/22 17:46 Quality VTE Deep Vein Thrombosis/Pulmonary Embolism Present on Admission: No
[2022-12-04 16:36] VITALS: TEMP 36.7
--- NOTE | 2022-12-04 17:43 | PC.NURSE ---
Day shift: Pt left unit at approx 1740 via WC. Taken to car by NANDA Daigle. Pt's Daughter is driving her home. Paperwork is signed and all questions answered. Pt has all personal belongings. scripts sent to Pt's pharmacy.
== END 2022-12-04 17:46 | disposition home or self-care (01) | DRG 229 ==
LOC: OR 12:46 → AC 12:46
PROVIDERS: Admitting Provider Surgery; Referring Provider Surgery; Visit Provider Surgery
PROC: 0WQF4ZZ Repair Abdominal Wall, Percutaneous Endoscopic Approach (ICD-10-PCS; principal; 2022-12-01 07:45)
DX: K43.0 Incisional hernia with obstruction, without gangrene (principal); G89.18 Other acute postprocedural pain; R30.0 Dysuria; Z20.822 Contact with and (suspected) exposure to COVID-19
CPT/HCPCS: 49617; 81001; 87635; C9803; G0378; J0131; J0171; J0330; J0690; J1100; J1170; J1650; J1885; J2175; J2405; J2704; J3010; J3490